=== PATIENT | male | born 1955 | race African-American/Black ===

== ENCOUNTER 2017-07-26 09:14 | Inpatient (IN) | payer OTHER ==
[2017-07-26 09:48] LABS: Hematocrit 31.1 % (42.0-52.0); Mean Platelet Volume 8.4 fL (7.4-10.4); Red Blood Cell (RBC) Count 4.25 mill/uL (4.70-6.10); White Blood Cell (WBC) Count 4.8 thou/uL (4.8-10.8)
[2017-07-26 09:51] LABS: #Eosinphils 0.1 thou/uL (0.0-0.7); #Lymphocytes 1.1 thou/uL (1.20-3.40); #Monocytes 0.5 thou/uL (0.11-0.59); #Neutrophils 3.1 thou/uL (1.40-6.50); %Basophils 0.9 % (0.0-1.0); %Eosinophils 1.9 % (0.0-10.0); %Lymphocytes 22.8 % (21.0-51.0); %Monocytes 10.1 % (0.0-10.0)
[2017-07-26 10:04] LABS: ALT (SGPT) 20 U/L (8-55); AST (SGOT) 26 U/L (5-34); Alkaline Phosphatase 79 U/L (40-150); Anion Gap 16 mmol/L (10-20); BUN (Urea Nitrogen) 28 mg/dL (8.4-25.7); Bilirubin, Total 0.3 mg/dL (0.2-1.2); CK (CPK) 118 U/L (30-200); Calc. Creatinine Clearance 0 mL/min (70-130); Calcium 9.2 mg/dL (7.8-10.44); Carbon Dioxide 22 mmol/L (23-31); Chloride 105 mmol/L (98-107); Estimated GFR-MDRD 30; Globulin 3.7 g/dL (2.4-3.5); Lipase 21 U/L (8-78); Protein, Total 7.3 g/dL (5.8-8.1)
[2017-07-26 10:17] LABS: Troponin I 0.109 ng/mL (< 0.028)
--- NOTE | 2017-07-26 10:23 | RAD ---
PORTABLE CHEST: History: Cough, chest pain. Comparison: 07-30-15 FINDINGS: Cardiomegaly. Vascular markings upper normal but stable. No evidence of focal infiltrate or effusion . IMPRESSION: No acute abnormality identified. POS: [facility]
[2017-07-26 10:31] LABS: Hypochromia SLIGHT = 6-15 cells (100X) (0-5/hpf); Microcytosis SLIGHT = 6-15 cells (100X) (0-5/hpf); Polychromasia SLIGHT = 2-3 cells (100X) (0-2/hpf)
[2017-07-26 16:11] LABS: Troponin I 0.084 ng/mL (< 0.028)
[2017-07-26] MEDS ORDERED: PROVENTIL INHALER 6.7 G (200 INHALATIONS) INH PRN (18:31)
[2017-07-26] MEDS: Atorvastatin Calcium 20 MG TAB PO SCH (20:38)
[2017-07-26] MEDS: Carvedilol 3.125 MG TAB PO SCH (20:38)
[2017-07-26] MEDS: Tamsulosin HCl 0.4 MG CAP PO SCH (20:39)
[2017-07-26] MEDS: Spironolactone 25 MG TAB PO SCH (20:39)
[2017-07-26 21:34] LABS: Amphetamine Not Detected (NotDetected); Methadone Not Detected (NotDetected); Methamphetamine Not Detected (NotDetected)
[2017-07-27 04:49] LABS: #Basophils 0.1 thou/uL (0.0-0.2); #Eosinphils 0.1 thou/uL (0.0-0.7); #Lymphocytes 1.5 thou/uL (1.20-3.40); #Monocytes 0.5 thou/uL (0.11-0.59); #Neutrophils 2.9 thou/uL (1.40-6.50); %Basophils 1.6 % (0.0-1.0); %Eosinophils 2.2 % (0.0-10.0); %Lymphocytes 29.7 % (21.0-51.0); %Monocytes 9.9 % (0.0-10.0); Mean Platelet Volume 8.6 fL (7.4-10.4); Red Blood Cell (RBC) Count 4.49 mill/uL (4.70-6.10); White Blood Cell (WBC) Count 5.1 thou/uL (4.8-10.8)
[2017-07-27 04:55] LABS: PTT 36.2 SEC (22.9-36.1); Prothrombin Time 14.2 SEC (12.0-14.7)
--- NOTE | 2017-07-27 06:17 | HP ---
DATE OF ADMISSION: 07/26/2017 REASON FOR CHIEF COMPLAINT: Shortness of breath and chest pain. HISTORY OF PRESENT ILLNESS: Mr. Ac is a 61-year-old male with past medical hist ory of severe cardiomyopathy, hypertension, coronary artery disease, and drug abuse as well as nonco mpliant, who came because of shortness of breath and chest pain. The patient also says he is coughi ng up blood since 3-4 days, the chest pain also started 3 days ago. The pain is sharp in nature, no t associated with diaphoresis. It does not radiate. It is in the retrosternal area. He says the s ymptoms are getting worse, getting more short of breath and chest pain. He received 2 DuoNeb treatm ents on the way to the hospital by the EMS. He felt better in the ER. The patient states he has no t been taking medications every day; he uses cocaine. When he smokes, he smokes cocaine. In the ER , the patient was evaluated and found to have indeterminate cardiac enzymes. He is admitted to rule out myocardial infarction and further evaluation. PAST MEDICAL HISTORY: 1. Severe cardiomyopathy with systolic heart failure with ejection fraction of 5% to 10%, echocardi ogram done in 2013. 2. Hypertension, uncontrolled. 3. Chronic kidney disease, stage 3. 4. Bipolar disorder with chronic cocaine abuse. 5. Diverticulosis. 6. Coronary artery disease. PAST SURGICAL HISTORY: 1. Status post appendectomy. 2. Status post coronary angiogram. CURRENT MEDICATIONS: The patient is supposed to be taking albuterol inhaler p.r.n., aspirin 81 mg d aily, Lipitor 20 mg at bedtime, Coreg 3.125 b.i.d., Lasix 40 b.i.d., hydralazine 50 t.i.d., Imdur 60 daily, lisinopril 10 mg daily, KCl 20 mEq daily, spironolactone 25 b.i.d., and Flomax 0.4 mg daily. ALLERGIES: No known drug allergies. FAMILY HISTORY: Nothing of interest. SOCIAL HISTORY: The patient lives alone. No history of alcohol intake. He uses crack regular. He states he does not smoke cigarettes. REVIEW OF SYSTEMS: Chest pain, shortness of breath, otherwise unremarkable. PHYSICAL EXAMINATION: GENERAL: The patient is alert, awake, and oriented x3. VITAL SIGNS: Temperature 98, pulse 74, respirations 20, and blood pressure 130/90. HEENT: Head is normocephalic, atraumatic. Pupils are equal and reactive to light. Nasopharynx is pale and dry. NECK: Supple. No JVD. LUNGS: Bilateral air entry present, no rales, no rhonchi. CARDIAC: S1, S2 regular. ABDOMEN: Soft, no distention, no tenderness. Normal bowel sounds present. RECTAL: Deferred. CENTRAL NERVOUS SYSTEM: No focal deficits. LABORATORY AND X-RAY FINDINGS: CBC shows WBC 4.8, hemoglobin 9.6, hematocrit 31, and platelets 216, MCV 73. Metabolic panel shows sodium 139, potassium 4.8, chloride 105, CO2 of 20, urea nitrogen 28 , creatinine 2.6, and glucose 110. CK-MB 2.6, troponin I 0.109. Chest x-ray negative. EKG shows n ormal sinus rhythm, no acute ST-T wave changes seen. ASSESSMENT: 1. Chest pain and shortness of breath, rule out myocardial infarction. 2. Severe cardiomyopathy with systolic heart failure with ejection fraction of 10% to 15%. 3. Cocaine abuse. 4. Hypertension. 5. The patient is noncompliant with medications. 6. Chronic kidney disease, stage 3. 7. Chronic anemia. PLAN: 1. Vital signs q.4 hours. 2. Activity as tolerated. 3. Allergies: NKDA. 4. Hep-Lock. 5. Diet: Cardiac. 6. CK-MB and troponin I q.8 hours x2. 7. Cardiolite stress test in the morning. 8. Continue home medications. 9. Urine drug screen.
[2017-07-27] MEDS: Aspirin 81 mg Enteric Coated Tablet PO SCH ×2 (10:31→12:24)
[2017-07-27] MEDS: Furosemide 40 MG TAB PO SCH ×3 (10:32→12:51)
[2017-07-27] MEDS: Lisinopril 10 MG TAB PO SCH ×2 (10:32→12:24)
[2017-07-27] MEDS: Potassium Chloride 20 MEQ TAB PO SCH ×2 (10:32→12:24)
[2017-07-27] MEDS: Carvedilol 3.125 MG TAB PO SCH ×3 (10:32→20:06)
[2017-07-27] MEDS: Spironolactone 25 MG TAB PO SCH ×3 (10:33→20:07)
--- NOTE | 2017-07-27 16:57 | CON ---
DATE OF CONSULTATION: 07/27/2017 HISTORY OF PRESENT ILLNESS: Patient is a 61-year-old gentleman, who presents with increasing chest discomfort. The patient has a long history of coronary artery disease. In, October of 2014 he underwent a cardiac catheterization. He was found to have a severe decrease in left ventricular systolic function with estimated ejection of 5-10%. He had a 70% lesion in the first diagonal branch. The left circumflex artery had a 70% OM lesion in both the first and second obtuse marginal branches. The right coronary had a 70% stenosis and was a small nondominant vessel. The patient had a severe cardiomyopathy. He was placed on medical therapy. He has not come for followup. He states he discontinued the use of alcohol and tobacco. He continues to use cocaine. The patient reports that recently he has noticed increasing dyspnea and chest discomfort with exertion. He reports this occurs with less exertion. He denies having any chest discomfort at rest. The patient states he has been compliant with his medications. PAST MEDICAL HISTORY: 1. Cardiomyopathy. 2. Hypertension. 3. Chronic renal failure. 4. Bipolar disorder. 5. Diverticulosis. 6. Cocaine abuse. PAST SURGICAL HISTORY: Appendectomy. SOCIAL HISTORY: The patient uses cocaine. ALLERGIES: None. REVIEW OF SYSTEMS: Noticeable for difficulty with urination, ten-point system is otherwise unremarkable. PHYSICAL EXAMINATION: GENERAL: Thin gentleman in no acute distress. Blood pressure 132/38. NECK: No jugular venous distention. LUNGS: Clear to auscultation. HEART: Regular rate and rhythm, normal S1, S2. ABDOMEN: Nondistended. EXTREMITIES: No edema. SKIN: Warm and dry. NEUROLOGIC: Nonfocal. VASCULAR: Radial pulses 2+. LABORATORY DATA: Sodium is 139, potassium 4.2, chloride 105, bicarbonate 22, BUN 28, creatinine is 2.6. Troponin 0.09. White blood cell count is 5.1, hemoglobin 10.6, hematocrit 33.0 and his platelets were 301. His EKG revealed him to have normal sinus rhythm with a T-wave abnormality suggestive of ischemia. IMPRESSION: 1. Exertional angina. 2. History of severe cardiomyopathy. 3. Severe diffuse coronary artery disease. 4. History of malignant hypertension. 5. Chronic renal failure. 6. Bipolar disorder. 7. Cocaine abuse. This gentleman presents with exertional angina. From a cardiac standpoint, it is imperative he be more compliant with his medications and followup. If he continues to have chest discomfort, we will continue to increase the dose of his Imdur. I will recheck the patient's echocardiogram to reevaluate his left ventricular function. We will follow this patient with you through his hospitalization. ESTELA
[2017-07-27] MEDS: Tamsulosin HCl 0.4 MG CAP PO SCH (20:06)
[2017-07-27] MEDS: Atorvastatin Calcium 20 MG TAB PO SCH (20:07)
[2017-07-28] MEDS: Carvedilol 6.25 MG TAB PO SCH ×2 (08:56→20:51)
[2017-07-28] MEDS: Aspirin 81 mg Enteric Coated Tablet PO SCH (08:56)
[2017-07-28] MEDS: Furosemide 40 MG TAB PO SCH ×2 (08:56→15:45)
[2017-07-28] MEDS: Spironolactone 25 MG TAB PO SCH ×2 (08:57→20:50)
[2017-07-28] MEDS: Lisinopril 10 MG TAB PO SCH (08:57)
[2017-07-28] MEDS: Potassium Chloride 20 MEQ TAB PO SCH (08:57)
--- NOTE | 2017-07-28 15:12 | CON ---
DATE OF CONSULTATION: 07/28/2017 REFERRING PHYSICIAN: Dr. Sunny Downing I am seeing Mr. Ac at our [facility] telemetry floor as an electrophysiology corporate travel consultant. His problems are: 1. Chronic systolic congestive heart failure with likely nonischemic cardiomyopathy. A. Left heart catheterization in 10/2014 did reveal left ventricular ejection fraction 5-10% and 70% first diagonal stenosis, 70% circumflex stenosis, 70% RCA stenosis which was nondominant. On medic al therapy. B. Followup echocardiogram today reveals an LVEF of 5-10, moderate left atrial dilation, mild enlarg ed right atrial size with mitral regurgitation, mild tricuspid regurgitation. Left ventricular size severely enlarged. 2. Chronic kidney disease stage 3. 3. History of bipolar disorder with a history of cocaine use in the past. Patient counseled to tello mccarthy. 4. Coronary artery receptors. 5. Hypertension. ALLERGIES: None noted. MEDICATIONS AT HOME: Albuterol, aspirin, Lipitor, Coreg, Lasix, hydralazine, Imdur, lisinopril, pot assium, spironolactone, Flomax. SUBJECTIVE: Mr. Ac was admitted with progressive dyspnea and coughing. He also had some sharp d iscomfort in the retrosternal area without radiation. He had a DuoNeb treatment, which has improved his dyspnea. He mentioned that he has used cocaine in the recent past, but planning to quit at thi s point. He denies IV drug use. He does not smoke tobacco, denies drug abuse, or other drug abuse. He was ruled out for myocardial infarction, although had borderline troponin changes. Also consul mckenzie for ICD implant. PAST MEDICAL HISTORY: As above. He also has history of diverticulosis, status post appendectomy. SOCIAL HISTORY: Patient denies tobacco or ETOH abuse. Denies IV drug use, but does admit to smokin g crack cocaine in the recent past and indeed his cocaine screen was positive. FAMILY HISTORY: Noncontributory. OBJECTIVE: VITAL SIGNS: Blood pressure 105/74, heart rate 75, temperature 97.6 degrees Fahrenheit, respiration s 18. GENERAL: He is alert and oriented man in no apparent distress. NECK: Supple. Jugular veins are not distended. CHEST: Coarse without crackles. CARDIOVASCULAR: Heart sounds are regular rate and rhythm. No gallop is appreciated, 1/6 holosystol ic murmur is heard. PMI is laterally displaced. ABDOMEN: Benign. Bowel sounds positive. EXTREMITIES: Lower extremities without edema, clubbing or cyanosis. Pulses are adequate. NEUROLOGIC: Patient is nonfocal. MUSCULOSKELETAL: No joint swelling or deformities. SKIN: Without rash. DATABASE: The EKG reviewed reveals sinus rhythm, 77 beats per minute. No seen. QTC is stron g at 484. LABORATORY DATA: Sodium 139, potassium 4.2, BUN 20, creatinine is 2.6, troponin 0.09. White count 5.5, hemoglobin 10.6, platelet count is 301. Chest x-ray from 07/26/2017 shows no acute abnormality, no effusion or infiltrate. His INR is 1.1. AST and ALT are 26 and 20. ASSESSMENT AND PLAN: Mr. Ac is a pleasant 61-year-old man who does have history of coronary moises ry disease, but his cardiomyopathy seems to be in excess of his coronary artery disease detected in the past. He is felt to have a nonischemic cardiomyopathy component. He has a history of chronic c ocaine abuse, but he has a commitment to quit. His left systolic function is severely reduced. He is reasonably young. I think he is at high risk for cardiac arrhythmias in the future. I did discuss the pros and cons of an ICD implant. He understands the benefit of the sudden cardiac prophylaxis. On the other hand, I also detailed the issues with potential continued cocaine use, which could be p roarrhythmic encountering intuitive to defibrillator prophylaxis sudden cardiac . He understan ds and he has a strong commitment to quit. Risks and benefits of procedure were detailed including a malignant arrhythmia induction, infection, bleeding, pneumothorax, tamponade, lead dislodgement, a nd appropriate shocks. Device records also detailed. He understands and is willing to proceed. We will schedule him in near date. Thank you for the consult.
[2017-07-28] MEDS: Atorvastatin Calcium 20 MG TAB PO SCH (20:50)
[2017-07-28] MEDS: Tamsulosin HCl 0.4 MG CAP PO SCH (20:51)
[2017-07-29] MEDS: Carvedilol 6.25 MG TAB PO SCH ×2 (06:00→20:41)
[2017-07-29 06:39] LABS: PTT 35.9 SEC (22.9-36.1); Prothrombin Time 13.9 SEC (12.0-14.7)
[2017-07-29 06:51] LABS: Anion Gap 15 mmol/L (10-20); BUN (Urea Nitrogen) 46 mg/dL (8.4-25.7); Calc. Creatinine Clearance 20 mL/min (70-130); Calcium 9.3 mg/dL (7.8-10.44); Carbon Dioxide 28 mmol/L (23-31); Chloride 100 mmol/L (98-107); Estimated GFR-MDRD 24
[2017-07-29 07:20] LABS: #Basophils 0.1 thou/uL (0.0-0.2); #Eosinphils 0.1 thou/uL (0.0-0.7); #Lymphocytes 1.1 thou/uL (1.20-3.40); #Monocytes 0.6 thou/uL (0.11-0.59); #Neutrophils 2.5 thou/uL (1.40-6.50); %Basophils 1.2 % (0.0-1.0); %Eosinophils 3.1 % (0.0-10.0); %Lymphocytes 25.5 % (21.0-51.0); %Monocytes 13.4 % (0.0-10.0); Hematocrit 34.7 % (42.0-52.0); Mean Platelet Volume 8.2 fL (7.4-10.4); Red Blood Cell (RBC) Count 4.69 mill/uL (4.70-6.10); White Blood Cell (WBC) Count 4.4 thou/uL (4.8-10.8)
[2017-07-29 08:31] LABS: Hypochromia SLIGHT = 6-15 cells (100X) (0-5/hpf); Microcytosis MODERATE=15-30 cells (100X) (0-5/hpf); Ovalocytes SLIGHT = 2-5 cells (100X) (0-1/hpf); Polychromasia SLIGHT = 2-3 cells (100X) (0-2/hpf)
[2017-07-29] MEDS: Aspirin 81 mg Enteric Coated Tablet PO SCH (09:23)
[2017-07-29] MEDS: Lisinopril 10 MG TAB PO SCH (09:23)
[2017-07-29] MEDS: Furosemide 40 MG TAB PO SCH (09:24)
[2017-07-29] MEDS: Potassium Chloride 20 MEQ TAB PO SCH (09:25)
[2017-07-29] MEDS: Spironolactone 25 MG TAB PO SCH (09:25)
[2017-07-29] MEDS ORDERED: Midazolam HCl 5 mg/5 ml Vial ONE (12:06)
[2017-07-29] MEDS ORDERED: Morphine Sulfate 2 MG/ML SYRINGE SLOW IVP PRN (13:24)
[2017-07-29] MEDS ORDERED: Promethazine HCl 25 MG/ML VIAL SLOW IVP PRN (13:24)
[2017-07-29] MEDS ORDERED: Ondansetron HCl/PF 4 MG/2 ML Vial IVP PRN ×2 (13:24→14:36)
[2017-07-29] MEDS ORDERED: Meperidine HCl/PF 25 MG/ML VIAL SLOW IVP PRN (13:24)
[2017-07-29] MEDS ORDERED: Acetaminophen/Codeine 30-300mg Tablet PO PRN ×2 (14:33)
[2017-07-29] MEDS ORDERED: HYDROcodone/Acetaminophen 5/325 mg Tablet PO PRN ×2 (14:34)
[2017-07-29] MEDS ORDERED: Bisacodyl 5 MG TAB PO PRN (14:36)
[2017-07-29] MEDS ORDERED: Bisacodyl 10 MG SUPP PR PRN (14:36)
[2017-07-29] MEDS ORDERED: Mag-Al 1200 mg/1200 mg/30 ML UDCUP PO PRN (14:36)
[2017-07-29] MEDS ORDERED: Silver Sulfadiazine 1% Cream 50 GM JAR TOP PRN (14:36)
[2017-07-29] MEDS ORDERED: Acetaminophen 325 MG TAB PO PRN (14:36)
[2017-07-29] MEDS ORDERED: Nitroglycerin 0.4 MG TAB (25 Tab Bottle) SL PRN (14:36)
[2017-07-29] MEDS ORDERED: diphenhydrAMINE HCl 25 MG CAP PO PRN (14:36)
[2017-07-29] MEDS ORDERED: Temazepam 15 MG CAP PO PRN (14:36)
[2017-07-29] MEDS: traMADol HCl 50 MG TAB PO PRN (14:59)
[2017-07-29] MEDS ORDERED: Spironolactone 25 MG TAB PO SCH (17:00)
[2017-07-29] MEDS: Cephalexin 250 MG CAP PO SCH ×2 (17:52→20:41)
[2017-07-29] MEDS: Atorvastatin Calcium 20 MG TAB PO SCH (20:41)
[2017-07-29] MEDS: Tamsulosin HCl 0.4 MG CAP PO SCH (20:42)
[2017-07-30 05:51] LABS: Anion Gap 17 mmol/L (10-20); BUN (Urea Nitrogen) 49 mg/dL (8.4-25.7); Calc. Creatinine Clearance 21 mL/min (70-130); Calcium 9.4 mg/dL (7.8-10.44); Carbon Dioxide 22 mmol/L (23-31); Chloride 100 mmol/L (98-107); Estimated GFR-MDRD 26
[2017-07-30] MEDS ORDERED: Spironolactone 25 MG TAB PO SCH (08:00)
[2017-07-30] MEDS ORDERED: Furosemide 40 MG TAB PO SCH (09:00)
[2017-07-30] MEDS ORDERED: Lisinopril 10 MG TAB PO SCH (09:00)
[2017-07-30] MEDS ORDERED: Potassium Chloride 20 MEQ TAB PO SCH (09:00)
--- NOTE | 2017-07-30 11:41 | RAD ---
AP VIEW CHEST: 07/30/2017 HISTORY: Status post pacemaker insertion. COMPARISON: 07/26/2017 FINDINGS: AP view chest demonstrates placement of an intracardiac defibrillator. EKG leads are seen over the chest. Cardiomegaly is noted. Mild to moderate pulmonary vascular congestion is seen. No evidence of left-sided pneumothorax is seen. IMPRESSION: Interval placement of intracardiac defibrillator. POS: [facility]
[2017-07-30] MEDS: Aspirin 81 mg Enteric Coated Tablet PO SCH (12:55)
[2017-07-30] MEDS: Cephalexin 250 MG CAP PO SCH ×4 (12:55→20:49)
[2017-07-30] MEDS: Carvedilol 6.25 MG TAB PO SCH ×2 (12:56→20:49)
[2017-07-30] MEDS: Spironolactone 25 MG TAB PO SCH (12:56)
--- NOTE | 2017-07-30 16:56 | EKG ---
Test Reason : Blood Pressure : / mmHG Vent. Rate : 077 BPM Atrial Rate : 077 BPM P-R Int : 172 ms QRS Dur : 096 ms QT Int : 428 ms P-R-T Axes : -21 -32 168 degrees QTc Int : 484 ms Normal sinus rhythm Left axis deviation Left ventricular hypertrophy with repolarization abnormality Prolonged QT Abnormal ECG Confirmed by KORI HAWLEY, LETTY Strong ([id number]), deputy editor in chief THADDEUS STAFFORD ([id number]) on 07/30/2017 4:56:20 PM Referred By: Confirmed By:LETTY SHEIKH MD
[2017-07-30] MEDS: Atorvastatin Calcium 20 MG TAB PO SCH (20:49)
[2017-07-30] MEDS: Tamsulosin HCl 0.4 MG CAP PO SCH (20:49)
[2017-07-31 05:04] LABS: Anion Gap 15 mmol/L (10-20); BUN (Urea Nitrogen) 44 mg/dL (8.4-25.7); Calc. Creatinine Clearance 25 mL/min (70-130); Calcium 9.3 mg/dL (7.8-10.44); Carbon Dioxide 23 mmol/L (23-31); Chloride 104 mmol/L (98-107); Estimated GFR-MDRD 30
[2017-07-31 05:43] VITALS: BMI 22.7
[2017-07-31] MEDS: Aspirin 81 mg Enteric Coated Tablet PO SCH (10:25)
[2017-07-31] MEDS: Spironolactone 25 MG TAB PO SCH (10:25)
[2017-07-31] MEDS: Carvedilol 6.25 MG TAB PO SCH ×2 (10:26→21:21)
[2017-07-31] MEDS: Cephalexin 250 MG CAP PO SCH ×4 (10:26→21:22)
[2017-07-31] MEDS: Atorvastatin Calcium 20 MG TAB PO SCH (21:21)
[2017-07-31] MEDS: Tamsulosin HCl 0.4 MG CAP PO SCH (21:22)
[2017-08-01] MEDS: traMADol HCl 50 MG TAB PO PRN (00:08)
[2017-08-01 06:01] LABS: Anion Gap 14 mmol/L (10-20); BUN (Urea Nitrogen) 44 mg/dL (8.4-25.7); Calc. Creatinine Clearance 26 mL/min (70-130); Calcium 9.5 mg/dL (7.8-10.44); Carbon Dioxide 21 mmol/L (23-31); Chloride 105 mmol/L (98-107); Estimated GFR-MDRD 31
[2017-08-01] MEDS: Cephalexin 250 MG CAP PO SCH ×3 (08:19→15:54)
[2017-08-01] MEDS: Carvedilol 6.25 MG TAB PO SCH (08:19)
[2017-08-01] MEDS: Spironolactone 25 MG TAB PO SCH (08:19)
[2017-08-01] MEDS: Aspirin 81 mg Enteric Coated Tablet PO SCH (08:19)
[2017-08-01] MEDS ORDERED: Carvedilol 6.25 MG TAB PO SCH (09:00)
--- NOTE | 2017-08-01 11:35 | PRG ---
DATE OF SERVICE: 07/30/2017 Follow up note on ICD interrogation report. SUBJECTIVE: Mr. Ac remains stable 1 day after his ICD implant. OBJECTIVE: VITAL SIGNS: Blood pressure is 130/65, heart rate 70, respiration 16, temperature 98.4 degrees Fahr enheit. Chest x-ray this morning reveals mild to moderate pulmonary vascular congestion, but no evidence of pneumothorax is seen. ICD in place. Interrogation of his defibrillator reveals a Medtronic Visa AF VR single chamber pacemaker defibrill ator, battery voltage is end of life. Lead parameters are impedance 61 ohms. RV is 12.3 millivolts , capture threshold 0.5 volts at 0.4 milliseconds, no arrhythmias noted since implant. CONCLUSION: Stable, patient one day post-ICD implant with adequate ICD parameters noted. PLAN: Continue antibiotics for a week. Discharge home as per primary service and routine follow up for wound check in 10-14 days in our office.
[2017-08-01 15:56] VITALS: BP 143/74
[2017-08-01 16:02] VITALS: TEMP 98.6
--- NOTE | 2017-08-04 01:52 | DIS ---
DATE OF ADMISSION: 07/26/2017 DATE OF DISCHARGE: 08/01/2017 ADMITTING DIAGNOSES: 1. Chest pain and shortness of breath, rule out myocardial infarction. 2. Severe cardiomyopathy with systolic heart failure with ejection fraction of 10% to 15%. 3. Cocaine abuse. 4. Hypertension. 5. Patient is noncompliant with medications. 6. Chronic kidney disease, stage 3. 7. Chronic anemia. FINAL DIAGNOSES: 1. Severe cardiomyopathy status post ICD placement. 2. Severe decrease in left ventricular function with ejection fraction of 5% to 10%, echo done on 0 07/27/2017. 3. Diffuse coronary artery disease. 4. Noncompliant with medications. 5. Cocaine abuse. 6. Hypertension. 7. Acute kidney injury, improving. 8. Chronic kidney disease, stage 3. BRIEF SUMMARY OF HOSPITAL COURSE: Mr. Hermelindo Ac is a 61-year-old -[place] male admitted because of chest pain and shortness of breath. The patient was noncompliant with medication and ab using cocaine. The patient does serial cardiac enzymes and they are in indeterminant range. A card iology consult was done. The patient was seen by Dr. Downing. He felt the patient has diffuse cor onary artery disease with angina and severe cardiomyopathy status post anechocardiogram, which showe d severe decrease in left ventricular function with ejection fraction of 5% to 10%. In the past, th e patient did not agree for any ICD placement; at this time, he agreed. So, a consultation was done with referral specialist. The patient was seen by Dr. Carmona. He felt the patient has severe cardiomyopat hy requiring ICD placement. The patient underwent procedure. Postoperatively, the patient tolerate d the procedure very well, but he did have worsening of renal function with acute kidney injury. Hi s BUN went up to 46 from 28. His creatinine went up from 2.6 to 3.1. His Lasix and lisinopril was stopped and spironolactone dose was reduced after his creatinine improved to 2.5. The patient had b een feeling well, no problem, no chest pain, no shortness of breath. In view of improvement, the tiffanie gallegos was discharged home. At the time of discharge, he was stable. His vital signs were stable. Lungs were clear. Heart sounds regular. Abdomen is soft and nontender. Bowel sounds present. DISCHARGE MEDICATIONS: Include Flomax 0.4 mg daily, atorvastatin 30 mg daily, Imdur 60 mg daily, hy dralazine 50 t.i.d., aspirin 81 mg daily, albuterol inhaler two puffs q.i.d., spironolactone 25 mg, Coreg 12.5 b.i.d., Keflex 500 q.6 hours for 7 days. The patient will come for followup in 2 weeks.
== END 2017-08-01 17:30 | disposition home or self-care (01) | DRG 227 ==
LOC: ERS 09:14 → 2SW 10:40 → OBSVTOIN 10:40 → 2NO 07-28 17:27
PROVIDERS: ADMIT Internal Medicine; ATTEND Internal Medicine
PROC: 0JH608Z Insertion of Defibrillator Generator into Chest Subcutaneous Tissue and Fascia, Open Approach (ICD-10-PCS; 2017-07-29)
PROC: 02HK3KZ Insertion of Defibrillator Lead into Right Ventricle, Percutaneous Approach (ICD-10-PCS; 2017-07-29)
PROC: 4B02XTZ Measurement of Cardiac Defibrillator, External Approach (ICD-10-PCS; 2017-07-29)
PROC: 3E0102A Introduction of Anti-Infective Envelope into Subcutaneous Tissue, Open Approach (ICD-10-PCS; 2017-07-29)
PROC: 4B02XTZ Measurement of Cardiac Defibrillator, External Approach (ICD-10-PCS; principal; 2017-07-30)
DX: I13.0 Hypertensive heart and chronic kidney disease with heart failure and stage 1 through stage 4 chronic kidney disease, or unspecified chronic kidney disease (principal); I42.9 Cardiomyopathy, unspecified; N17.9 Acute kidney failure, unspecified; N18.3 Chronic kidney disease, stage 3 (moderate); I08.1 Rheumatic disorders of both mitral and tricuspid valves; I50.22 Chronic systolic (congestive) heart failure; F20.0 Paranoid schizophrenia; F14.10 Cocaine abuse, uncomplicated; Z91.14 Patient's other noncompliance with medication regimen; F31.9 Bipolar disorder, unspecified; K57.90 Diverticulosis of intestine, part unspecified, without perforation or abscess without bleeding; D63.1 Anemia in chronic kidney disease; I25.119 Atherosclerotic heart disease of native coronary artery with unspecified angina pectoris; Z87.891 Personal history of nicotine dependence
CPT/HCPCS: 33249; 36415; 71010; 80048; 80053; 80306; 82550; 82553; 83690; 84484; 85025; 85610; 85730; 90471; 90732; 93005; 93010; 93306; 93642; 93798; 94760; A4216; G0009; J2250; J3490

== ENCOUNTER 2017-11-03 15:11 | Emergency (ER) | payer OTHER ==
[2017-11-03 17:15] LABS: #Eosinphils 0.1 thou/uL (0.0-0.7); #Lymphocytes 1.3 thou/uL (1.20-3.40); #Monocytes 0.6 thou/uL (0.11-0.59); #Neutrophils 5.2 thou/uL (1.40-6.50); %Basophils 0.5 % (0.0-1.0); %Eosinophils 1.8 % (0.0-10.0); %Lymphocytes 17.4 % (21.0-51.0); %Neutrophils 72.4 % (42.0-75.0); Hemoglobin 10.9 g/dL (14.0-18.0); Mean Corpuscular HGB CONC 29.3 g/dL (32.0-36.0); Mean Corpuscular Hemoglobin 20.7 pg (27.0-31.0); Mean Corpuscular Volume 70.7 fl (80.0-94.0); Mean Platelet Volume 9.8 fL (7.4-10.4); Platelet Count 340 thou/uL (130-400); RBC Distribution Width 17.4 % (11.5-14.5); Red Blood Cell (RBC) Count 5.24 mill/uL (4.70-6.10); White Blood Cell (WBC) Count 7.2 thou/uL (4.8-10.8)
[2017-11-03] MEDS ORDERED: cefTRIAXone\\ROCEPHIN 2 GM in Sodium Chloride 0.9% 100 ML IVPB ONE (17:15)
--- NOTE | 2017-11-03 17:22 | RAD ---
PORTABLE CHEST ONE VIEW: 11/03/17 at 4:24 p.m. HISTORY: Cough, fever, chills, bodyaches. FINDINGS: Comparison made with exam of 07/30/17. Left sided pacemaker device remains in place. The heart size is stable. There is a consolidative beyer ge in the right lower lobe. No pneumothorax or large effusions are seen. IMPRESSION: Right lower lobe pneumonia. POS: [facility]
[2017-11-03 17:28] LABS: Hypochromia MODERATE=16-30 cells (100X) (0-5/hpf); MDiff Complete? YES; Microcytosis MODERATE=15-30 cells (100X) (0-5/hpf); Polychromasia MODERATE = 3-4 cells (100X) (0-2/hpf); Reflex for Review?? NO
[2017-11-03 17:34] LABS: ALT (SGPT) Less than 7 U/L (8-55); AST (SGOT) 15 U/L (5-34); Albumin 3.7 g/dL (3.4-4.8); Alkaline Phosphatase 91 U/L (40-150); Anion Gap 15 mmol/L (10-20); BUN (Urea Nitrogen) 25 mg/dL (8.4-25.7); Bilirubin, Total 0.4 mg/dL (0.2-1.2); CK (CPK) 45 U/L (30-200); Calc. Creatinine Clearance 0 mL/min (70-130); Calcium 9.7 mg/dL (7.8-10.44); Carbon Dioxide 22 mmol/L (23-31); Chloride 104 mmol/L (98-107); Estimated GFR-MDRD 47; Glucose 113 mg/dL (80-115); Potassium 4.2 mmol/L (3.5-5.1); Protein, Total 8.7 g/dL (5.8-8.1); Sodium 137 mmol/L (136-145)
[2017-11-03 17:39] LABS: CKMB 0.9 ng/mL (0-6.6); Troponin I 0.061 ng/mL (< 0.028)
--- NOTE | 2017-11-05 12:54 | EKG ---
Test Reason : Blood Pressure : / mmHG Vent. Rate : 078 BPM Atrial Rate : 138 BPM P-R Int : 176 ms QRS Dur : 098 ms QT Int : 408 ms P-R-T Axes : -19 -28 149 degrees QTc Int : 465 ms Left ventricular hypertrophy with repolarization abnormality Abnormal ECG Confirmed by GUNJAN BROOKS ([id number]), senior editor THADDEUS STAFFORD ([id number]) on 11/05/2017 12:53:46 PM Referred By: Confirmed By:GUNJAN BROOKS
== END 2017-11-03 18:19 | disposition home or self-care (01) ==
LOC: ERS 15:11
DX: J18.9 Pneumonia, unspecified organism (principal); E11.9 Type 2 diabetes mellitus without complications; I11.0 Hypertensive heart disease with heart failure; I50.9 Heart failure, unspecified; F20.0 Paranoid schizophrenia; I25.2 Old myocardial infarction; F31.9 Bipolar disorder, unspecified; Z87.891 Personal history of nicotine dependence; Z79.82 Long term (current) use of aspirin; Z79.899 Other long term (current) drug therapy
CPT/HCPCS: 36415; 71010; 80053; 82550; 82553; 83605; 84484; 85025; 87040; 87804; 93005; 96365; 99406; J0696; J7050

== ENCOUNTER 2017-11-14 11:01 | Inpatient (IN) | payer OTHER ==
[2017-11-14 12:06] LABS: #Lymphocytes 1.6 thou/uL (1.20-3.40); #Monocytes 0.5 thou/uL (0.11-0.59); #Neutrophils 7.1 thou/uL (1.40-6.50); %Eosinophils 0.4 % (0.0-10.0); %Lymphocytes 17.5 % (21.0-51.0); %Monocytes 5.7 % (0.0-10.0); %Neutrophils 76.3 % (42.0-75.0); Hemoglobin 9.3 g/dL (14.0-18.0); Mean Corpuscular HGB CONC 28.9 g/dL (32.0-36.0); Mean Corpuscular Hemoglobin 20.7 pg (27.0-31.0); Mean Corpuscular Volume 71.5 fl (80.0-94.0); Mean Platelet Volume 8.7 fL (7.4-10.4); Platelet Count 385 thou/uL (130-400); RBC Distribution Width 17.8 % (11.5-14.5); Red Blood Cell (RBC) Count 4.51 mill/uL (4.70-6.10); White Blood Cell (WBC) Count 9.4 thou/uL (4.8-10.8)
--- NOTE | 2017-11-14 12:14 | RAD ---
CHEST 1 VIEW: HISTORY: Shortness of breath. COMPARISON: Chest 1 view 11/03/17. FINDINGS: Similar appearance of the right middle lobe airspace consolidation. Mild pulmonary venous congestion . Heart size is enlarged. No pneumothorax. Single-lead defibrillator is present. IMPRESSION: 1. Right middle lobe opacification not improved. 2. Cardiomegaly. 3. Mild pulmonary venous congestion. Continued followup is recommended. If there is no improvement within the next few weeks, a CT will b e recommended to evaluate for underlying mass. POS: [facility]
[2017-11-14 12:28] LABS: ALT (SGPT) Less than 7 U/L (8-55); AST (SGOT) 13 U/L (5-34); Albumin 3.3 g/dL (3.4-4.8); Alkaline Phosphatase 91 U/L (40-150); Anion Gap 15 mmol/L (10-20); BUN (Urea Nitrogen) 23 mg/dL (8.4-25.7); Bilirubin, Total 0.5 mg/dL (0.2-1.2); CKMB 1.1 ng/mL (0-6.6); Calc. Creatinine Clearance 0 mL/min (70-130); Calcium 9.1 mg/dL (7.8-10.44); Carbon Dioxide 24 mmol/L (23-31); Chloride 105 mmol/L (98-107); Estimated GFR-MDRD 51; Globulin 4.6 g/dL (2.4-3.5); Glucose 98 mg/dL (80-115); Potassium 4.4 mmol/L (3.5-5.1); Protein, Total 7.9 g/dL (5.8-8.1); Sodium 140 mmol/L (136-145); Troponin I 0.076 ng/mL (< 0.028)
[2017-11-14 12:35] LABS: Bite Cells SLIGHT = 2-5 cells (100X) (0-1/hpf); Hypochromia MARKED = >30 cells (100X) (0-5/hpf); MDiff Complete? YES; Microcytosis MODERATE=15-30 cells (100X) (0-5/hpf); PLT Morphology Comment Appears Adequate; Polychromasia MODERATE = 3-4 cells (100X) (0-2/hpf)
[2017-11-14] MEDS ORDERED: Nitroglycerin 2% Ointment 1 INCH/1 GM Packet ONE (13:31)
[2017-11-14] MEDS ORDERED: hydrALAZINE 20 MG/ML VIAL ONE (14:19)
[2017-11-14] MEDS ORDERED: hydrALAZINE 20 MG/ML VIAL SLOW IVP PRN (19:41)
[2017-11-14] MEDS ORDERED: Furosemide 40 MG/4 ML VIAL SLOW IVP SCH (19:45)
[2017-11-14 20:12] LABS: Troponin I 0.069 ng/mL (< 0.028)
[2017-11-14] MEDS: hydrALAZINE 25 MG TAB PO SCH (20:39)
[2017-11-14] MEDS: Carvedilol 3.125 MG TAB PO SCH (20:39)
--- NOTE | 2017-11-14 23:15 | HP ---
DATE OF ADMISSION: 11/14/2017 CHIEF COMPLAINT: Shortness of breath and cough. HISTORY OF PRESENT ILLNESS: Mr. Ac is a 62-year-old -[place] male with past medical histo ry of severe cardiomyopathy with decreased LV function with ejection fraction of 15%, [facility] and cough for a few days. The patient states he ran out of medications last week and he did not go for refills to the physician's office. He also has a cough, is productive wi th yellow sputum. No fever, no chest pain. Shortness of breath has been progressively getting worse to the point he could not breathe. The patient decided to come to the hospital. In the ER, the pat iesarthak was evaluated and found to be in acute CHF exacerbation. The patient also had elevated blood pr essures of 160/90. The patient received hydralazine, Lasix, and nitroglycerin as of. The patient w as admitted for further evaluation and management. PAST MEDICAL HISTORY: 1. Cocaine abuse. 2. Severe cardiomyopathy with decreased LV estimated ejection fraction of 10%. 3. Hypertension. 4. Noncompliance with medications. 5. History of respiratory failure. 6. Chronic kidney disease stage 3. 7. Bipolar disorder. 8. History of diverticulosis. 9. Diffuse coronary artery disease. 10. The patient was treated for pneumonia about 2 weeks ago. PAST SURGICAL HISTORY: 1. Status post appendectomy. 2. Status post coronary angiogram. CURRENT MEDICATIONS: The patient is supposed to be on Lasix 40 b.i.d., Coreg 3.125 b.i.d., Lipitor 2 0 mg daily, aspirin 81 mg daily, hydralazine 50 t.i.d., Imdur 60 daily, lisinopril 10 mg daily, KCl 2 0 mEq daily, spironolactone 25 b.i.d., Flomax 0.4 mg daily, also albuterol inhaler p.r.n. The patien t is out of all of these medications for a few days. ALLERGIES: No known drug allergies. FAMILY HISTORY: Nothing contributory. SOCIAL HISTORY: The patient lives alone. History of cocaine abuse. REVIEW OF SYSTEMS: Cardiovascular: Has shortness of breath. No chest pain. Respiratory: Has coug h and fever. Gastrointestinal: No nausea or vomiting. No abdominal pain. PHYSICAL EXAMINATION: GENERAL: The patient is alert, awake, oriented x3. VITAL SIGNS: Pulse 104, respirations 26, blood pressure 160/90. HEENT: Head is normocephalic, atraumatic. Pupils are equal and reactive to light. Nasopharynx is p tristan and dry. Hard and soft palate, no lesions seen. SKIN: Skin turgor decreased. NECK: No JVD. Carotid pulses are bilateral. LUNGS: Breath sounds diminished bilaterally. Crackles present in both bases. HEART: S1, S2 regular. ABDOMEN: Soft, no distention, no tenderness. Normal bowel sounds. RECTAL: Deferred. CRANIAL NERVE SYSTEM: No focal deficit. LABORATORY AND X-RAY FINDINGS: CBC shows a WBC of 9.4, hemoglobin 9.3, hematocrit 32, platelets 385. Metabolic panel: Sodium 140, potassium 4.4, chloride 105, CO2 of 24, urea nitrogen 23, creatinine 1.6, glucose 98. CK-MB 1.1, troponin 0.076. BNP was 7596. Chest x-ray shows pulmonary vascular con gestion as well as opacity in the right lower lobe. EKG shows a normal sinus rhythm, no acute ST or T wave changes seen. ASSESSMENT: 1. Congestive heart failure, acute exacerbation. 2. Severe cardiomyopathy with decreased left ventricular function with ejection fraction of 10-15%. 3. Hypertension, uncontrolled. 4. Noncompliant with the medications. 5. Right lower lobe opacity. 6. Chronic kidney disease stage 3. 7. Chronic anemia. 8. Diffuse coronary artery disease. 9. History of cocaine abuse. PLAN: 1. Vital signs q.4 hours. 2. Activity: As tolerated. 3. Allergies: NKDA. 4. Hep-Lock. 5. Lasix 40 IVP q.12 h. 6. Continue home medications. 7. Hydralazine 10 mg IVP q.6 hours p.r.n. 8. Troponin I q.[address] of the chest. 10. Levaquin 750 daily.
[2017-11-15 00:14] VITALS: BMI 24.6
[2017-11-15 05:40] LABS: #Lymphocytes 0.8 thou/uL (1.20-3.40); #Monocytes 0.4 thou/uL (0.11-0.59); #Neutrophils 7.5 thou/uL (1.40-6.50); %Basophils 0.2 % (0.0-1.0); %Eosinophils 0.1 % (0.0-10.0); %Lymphocytes 8.6 % (21.0-51.0); %Monocytes 4.8 % (0.0-10.0); %Neutrophils 86.3 % (42.0-75.0); Hemoglobin 8.7 g/dL (14.0-18.0); Mean Corpuscular HGB CONC 28.3 g/dL (32.0-36.0); Mean Corpuscular Volume 70.7 fl (80.0-94.0); Mean Platelet Volume 8.9 fL (7.4-10.4); Platelet Count 385 thou/uL (130-400); RBC Distribution Width 17.8 % (11.5-14.5); Red Blood Cell (RBC) Count 4.33 mill/uL (4.70-6.10); White Blood Cell (WBC) Count 8.7 thou/uL (4.8-10.8)
[2017-11-15 05:59] LABS: Anion Gap 14 mmol/L (10-20); BUN (Urea Nitrogen) 36 mg/dL (8.4-25.7); Calc. Creatinine Clearance 41 mL/min (70-130); Calcium 8.9 mg/dL (7.8-10.44); Carbon Dioxide 22 mmol/L (23-31); Chloride 104 mmol/L (98-107); Estimated GFR-MDRD 49; Glucose 108 mg/dL (80-115); Potassium 4.7 mmol/L (3.5-5.1); Sodium 135 mmol/L (136-145)
[2017-11-15 06:05] LABS: Amphetamine Not Detected (NotDetected); Barbiturates Screen Not Detected (NotDetected); Benzodiazepine Screen Not Detected (NotDetected); Cocaine Metabolite Screen Detected (NotDetected); Medtox Control Line Valid? VALID (VALID); Medtox Reader # READER 1; Methadone Not Detected (NotDetected); Methamphetamine Not Detected (NotDetected); Opiate Screen Not Detected (NotDetected); Oxycodone Screen Not Detected (NotDetected); Phencyclidine (PCP) Not Detected (NotDetected); THC/Cannabinoid Screen Not Detected (NotDetected); Tricyclic Screen Not Detected (NotDetected)
[2017-11-15] MEDS: Furosemide 40 MG/4 ML VIAL SLOW IVP SCH ×2 (06:20→14:51)
[2017-11-15] MEDS: Potassium Chloride 20 MEQ TAB PO SCH (08:33)
[2017-11-15] MEDS: hydrALAZINE 25 MG TAB PO SCH ×3 (08:33→20:42)
[2017-11-15] MEDS: Spironolactone 25 MG TAB PO SCH (08:33)
[2017-11-15] MEDS: Lisinopril 10 MG TAB PO SCH (08:34)
[2017-11-15] MEDS: Carvedilol 3.125 MG TAB PO SCH ×2 (08:34→20:42)
--- NOTE | 2017-11-15 09:27 | CT ---
CT CHEST WITH IV CONTRAST: History: Chest pain. Dyspnea. FINDINGS: No comparison. Large mass at the medial aspect of the right lung base is surrounded by adjacent atele ctasis. It measures up to 6.9 cm length x 9.0 cm depth x 6.6 cm width and compresses the right lower lobe bronchus. At the posterior aspect of the superior segment left lower lobe is a subpleural 0.7 cm nodule. Parenchymal scarring is also present at each lung base. There is calcification in the arteri al structures. No bulky adenopathy is evident. The inferior most images show marked dilatation of each renal collecting system. IMPRESSION: 1. Large right lower lobe mass. Compression of the right lower lobe bronchus. Please consider pulmona ry medicine evaluation for potential bronchoscopy. Percutaneous biopsy could be performed if needed. 2. Small left lower lobe nodule, 0.7 cm. Possible metastatic disease. 3. Severe bilateral hydronephrosis, partially visualized. CT abdomen and pelvis could be performed fo r complete evaluation. POS: [facility]
[2017-11-15] MEDS ORDERED: Guaifenesin DM 100-10/5 ML UDCUP PO PRN (21:49)
--- NOTE | 2017-11-16 01:53 | CON ---
DATE OF CONSULTATION: 11/15/2017 HISTORY OF PRESENT ILLNESS: Mr. Ac is a pleasant 62-year-old male. He lives up in [place]. Unfortunately, he continues to use cocaine on today's drug screen as well as multiple drug screens in the past. He has also been noncompliant with maintaining his medications for his cardiomyopathy. He was admitt ed with an abnormal chest radiograph with a diagnosis of heart failure. I reviewed all of his availa ble radiographs dating back as long as he has been coming here. Unfortunately, Mr. Ac developed an abnormal radiograph last fall. He had a right hilar mass. Thi s right hilar mass has progressed to a point where it was obstructing his right lower lobe bronchus b y radiograph. I have reviewed this CT. Atelectasis is large. It is unclear how much of this is a m ass and how much of this is atelectasis, but I suspect a lot of it is mass. He has a 7 mm nodule in his left lower lobe as well. More importantly, he has severe hydronephrosis bilaterally. This is a more pressing issue in my opinion. He has no complaints at the time of my consultation. Specifically, denies orthopnea, paroxysmal nocturnal dyspnea or hemoptysis. He denies shortness of b reath with exertion currently. PAST MEDICAL HISTORY: 1. Remarkable for a severe cardiomyopathy. He has been followed by Dr. Downing in the past. It is unclear whether or not Dr. Downing knows he is in the hospital. He says he has an appointment comi ng up with him. 2. History of hypertension. 3. History of chronic kidney disease. 4. History of bipolar illness. 5. History of diverticulosis. 6. History of diffuse coronary artery disease. 7. History of an appendectomy. 8. History of coronary angiogram. Admitting history says he was treated for pneumonia 2 weeks ago, I suppose the pneumonia was this mas s. MEDICATIONS: He is on no medicines on admission. ALLERGIES: He has no drug allergies. FAMILY HISTORY: Negative for lung disease in an early age. SOCIAL HISTORY: He has been a smoker. He continues to use cocaine. He lives alone in [place]. He says he wants to live down here and he is looking up moving into the [employer] and then spe nding time with his daughter. REVIEW OF SYSTEMS: Otherwise, 10-point negative. PHYSICAL EXAMINATION: GENERAL: He is in no distress. VITAL SIGNS: He is afebrile, heart rate 93, blood pressure 164/105, and respiratory rate 18. HEENT: Pupils are equal. NECK: Supple. No lymphadenopathy. LUNGS: Remarkable for decreased breath sounds at his right base. He is not wheezing. HEART: Regular rhythm, no S3. ABDOMEN: Soft and nontender. EXTREMITIES: With asymmetry. LABORATORY DATA: White count 8.7, hemoglobin 8.7, platelets 385. Sodium 135, potassium 4.7, chlorid e 104, bicarbonate 22, BUN 36, creatinine 1.7. There is no new blood gas on him. IMPRESSION: Lung mass, likely malignant. PLAN: Schedule outpatient PET imaging. I will try to make an appointment through my office tomorrow for PET imaging for him. It will be his duty to show up for the PET and then follow up with me maulik harris. I am not sure he will be a candidate for any type of treatment given the severity of his car diomyopathy, his history of medical noncompliance and his ongoing cocaine use, but we will try. This is a 70-minute consultation of which 50% of the consult was spent reviewing radiographs and on t he unit with staff coordinating care, and discussing the case with the attending physician.
[2017-11-16] MEDS: Furosemide 40 MG/4 ML VIAL SLOW IVP SCH ×2 (06:21→14:22)
[2017-11-16] MEDS: Potassium Chloride 20 MEQ TAB PO SCH (09:24)
[2017-11-16] MEDS: Spironolactone 25 MG TAB PO SCH (09:24)
[2017-11-16] MEDS: Carvedilol 3.125 MG TAB PO SCH ×2 (09:25→20:03)
[2017-11-16] MEDS: hydrALAZINE 25 MG TAB PO SCH ×3 (09:25→20:03)
[2017-11-16] MEDS: Lisinopril 10 MG TAB PO SCH (09:25)
--- NOTE | 2017-11-16 11:04 | CT ---
ABDOMEN AND PELVIS CT WITH CONTRAST: Date: 11/16/17 Reference is made to chest CT from preceding day and is compared to a prior abdomen and pelvis CT fro January 2014. FINDINGS: There is marked distention of the urinary bladder with moderate to severe bilateral hydronephrosis wi th associated right renal atrophy and slight volume loss of left kidney. Delayed phase imaging also p erformed. This reveals an abnormal location of each ureter which may relate to partial cystectomy and transposition of the ureters. Therefore, the bilateral hydroureteronephrosis likely relates to chron ic reflux. Redemonstration of pulmonary mass at right lung base as was depicted on recent chest CT, o nly partially visualized on the basis of this exam. There is a large right inguinal hernia containing nonobstructed bowel, a majority of which is contrast opacified small bowel. There is prostate calcif ication. Granulomatous calcification is present within the liver. Imaged osseous structures are nonac arthur in appearance. IMPRESSION: 1. Findings consistent with moderate to severe hydroureteronephrosis bilaterally, likely on the basi s of chronic reflux as discussed above. Correlate with surgical history. 2. Large right inguinal hernia with large hernia sac within the right aspect of the scrotum containi ng multiple loops of contrast opacified small bowel. No associated mechanical obstruction is evident. 3. Partially imaged pulmonary mass. Reference CT of thorax from previous day for details. POS: SALVADOR
[2017-11-16 18:34] LABS: Bacteria/HPF None Seen HPF (None Seen); RBC/HPF 0-3 HPF (0-3); Squamous Epithelial 0-3 HPF (0-3)
[2017-11-16 18:35] LABS: Pathc Cast-AUWi Flag 2.71 (0-2.49)
[2017-11-16 18:42] LABS: Hyaline Casts/LPF 0-3 HYALINE CAST LPF (0-3 Hyaline); Other Casts/LPF None Seen LPF (0-3 Hyaline)
[2017-11-16 18:46] LABS: Amphetamine Not Detected (NotDetected); Barbiturates Screen Not Detected (NotDetected); Benzodiazepine Screen Not Detected (NotDetected); Cocaine Metabolite Screen Detected (NotDetected); Medtox Control Line Valid? VALID (VALID); Medtox Reader # READER 1; Methadone Not Detected (NotDetected); Methamphetamine Not Detected (NotDetected); Opiate Screen Not Detected (NotDetected); Oxycodone Screen Not Detected (NotDetected); Phencyclidine (PCP) Not Detected (NotDetected); THC/Cannabinoid Screen Not Detected (NotDetected); Tricyclic Screen Not Detected (NotDetected)
--- NOTE | 2017-11-16 20:07 | PRG ---
DATE OF SERVICE: 11/16/2017 SUBJECTIVE: Hermelindo Ac is medically stable. He is afebrile. Heart rate is in the 70s, blood pre ssure 153/98. I explained to him that there is really no need for him to be in the hospital since hi s radiographic abnormalities were all secondary to this mass in his chest. An incidental finding was hydronephrosis which was worked up today with an abdomen and pelvis CT. I suggested Urology consultation yesterday when I met with Dr. Bateman. I have explained to him t hat it will be his responsibility to contact my office for a followup and scheduling of PET imaging. He is unclear where he will be residing or how and if he can get to PET imaging, so there is no reas on for me to schedule this at this point in time. Once he is settled after discharge, he can contact me. I will be happy to see him and arrange PET imaging through the office.
[2017-11-17 07:46] VITALS: TEMP 98.1
[2017-11-17] MEDS: Carvedilol 3.125 MG TAB PO SCH (07:59)
[2017-11-17] MEDS: hydrALAZINE 25 MG TAB PO SCH (07:59)
[2017-11-17 08:00] VITALS: BP 124/79
[2017-11-17] MEDS: Lisinopril 10 MG TAB PO SCH (08:00)
[2017-11-17] MEDS: Spironolactone 25 MG TAB PO SCH (08:00)
[2017-11-17] MEDS: Potassium Chloride 20 MEQ TAB PO SCH (08:00)
[2017-11-17] MEDS ORDERED: Furosemide 40 MG TAB PO SCH (09:00)
--- NOTE | 2017-11-17 09:02 | CON ---
DATE OF CONSULTATION: 11/16/2017 REASON FOR CONSULTATION: Consultation was requested for bilateral hydronephrosis. HISTORY OF PRESENT ILLNESS: Patient is a 62-year-old noncompliant male, who was admitted with congestive heart failure exacerbation with possible component of pneumonia, who had a chest CT that found a lung mass, which is yet to be fully worked up, but concerning for malignancy. In the workup for the lung mass , the superior portion of the abdomen was imaged and noted bilateral hydro and I was consulted. The patient reports frequency every 2-3 hours and every hour with diuresis medications and nocturia x4 to 5. He admits to hesitancy, weak stream, and incomplete emptying. He denies any burning, UTIs, gross hematuria, kidney stones, STDs or stricture disease. He was already to be taking tamsulosin for his presumed BPH. After seeing the patient, I discovered that he was set up with my partners previously. One, he no-showed for a new appt. The second, he was seen in the hospital and instructed to f/u. He did not, and it was recorded that he was hostile to and did not wish to see that doctor. He was advised to f/u with urology. This was in 2014. PAST MEDICAL HISTORY: Significant for CAD and an OR in 2012. He has cardiomyopathy with an EF of 10%-15%. He has hypertension; high cholesterol; renal insufficiency; bipolar disorder, for which he is disabled; anemia; and cocaine abuse, which is ongoing per testing, but the patient reports he stopped since September. PAST SURGICAL HISTORY: Appendectomy and pacer; hence the appendectomy was remote and the pacer was placed in 07/2017. MEDICATIONS: Lasix 40 b.i.d., Coreg 3.125 b.i.d., Lipitor 20 mg, lisinopril 10 mg, aspirin 81 mg, hydralazine 50 t.i.d., Imdur 60 mg, spironolactone 25 mg b.i.d., albuterol inhaler, potassium, and Flomax. ALLERGIES: None. SOCIAL HISTORY: He has never used IV drug. He has a [id number] history, but quit in 2011 or 2012 when the heart attack occurred. He has also quit drinking since then as well. He reports his last cocaine use was in September. He lives on his own and does not work due to his bipolar disability. FAMILY HISTORY: Mother is alive and with some general health issues at 84. His father in his 80s, he is not sure of what. There was no cancer in the family. He has 3 sisters that are living and a brother that from heart attack. REVIEW OF SYSTEMS: He has no chest pain. He had shortness of breath with cough and fever upon admission and this has improved. He had been diagnosed with pneumonia 2 weeks prior to this admission. He had diarrhea from the contrast for the CT, but otherwise his bowels have been normal. He has never had a colonoscopy. He is not aware of any PSAs or prostate cancer screening. His large right inguinal hernia PHYSICAL EXAMINATION: VITAL SIGNS: Stable, temperature of 97.8, heart rate 78, blood pressure 124/79 , satting 96% on room air. GENERAL: He is comfortable, cooperative, appropriate, and oriented. HEART: Regular rate with a systolic ejection murmur noted. LUNGS: Relatively clear to auscultation. ABDOMEN: Soft, nondistended, nontender. No CVA tenderness. EXTREMITIES: He had no significant lower extremity edema. GENITOURINARY: Testes are descended bilaterally without masses. Initially, you could only examine the left given his large right IH, but he was able to reduce this fully himself. Phallus was circumcised without lesions. No meatal stenosis. Digital rectal exam revealed an enlarged prostate that was smooth without nodules or sidewall induration. LABORATORY DATA: Reveal an anemia of 8.7 and 30.6. A BUN and creatinine of 36 and 1.71, which is up from 1.65, which I suspect is from the contrast of the CT ; however, looking back at his creatinines they have been as high as 3.17 in July and have not been in the 1 range since 2013. Urinalysis from 07/2015 showed inflammation only without a culture. I do not see any PSAs. CT scan with contrast from 11/16/2017, which I reviewed personally, revealed bilateral hydro with decreased parenchyma bilaterally, right greater than left, with hydroureter to the distended bladder, which is up to the umbilicus, and the prostate appeared normal without obvious prostatic nodule that was clearly evident and the CT scan from 01/14/2014, which I also reviewed, which was concern for a bladder mass, but to me this is consistent with prostatic nodule sticking up into the bladder base and the bladder was clearly uniformly thickened at that time and distended above the pelvic brim then, but without any hydronephrosis and normal parenchyma at that time. ASSESSMENT AND PLAN: We have a complicated 62-year-old male, who has a fairly common result of chronic bladder outlet obstruction from benign prostatic hypertrophy resulting in bilateral hydronephrosis secondary to the very distended bladder. However, in most cases, the pt presents with renal failure, which he did not; in fact, his creatinine is doing better than prior. In most cases I would place a catheter until the creatinine nadirs, which probably already is and then attempt voiding trials thereafter. However, the patient is clearly voiding--just not emptying adequately with a decent Creatinine. Since they were looking to actually discharge him today, in combination with his comorbidities and social situation, I do not feel Otto catheter would be appropriate at this time for the patient's overall wellbeing. I reviewed this in great detail with him. I would increase the tamsulosin to twice a day and add finasteride. I will check a urinalysis, both for infection and cytology given his smoking history (and prior concern for bladder mass--again likely his prostate). I would order a PSA and expect that it would be higher than normal, but rule out that it is concerning for any sort of metastatic prostate cancer. I'd have him follow up as an outpatient and monitor his emptying. We then reviewed how he really would benefit from a prostate procedure, but he likely would not tolerate this. He really would like to have his hernia fixed. If he ever does follow up, and is cleared from a cardiac standpoint, these procedures could be done together. That's also assuming his lung mass doesn't trump everything else. I reviewed all of this with him and his nurse and I wrote prescriptions for tamsulosin and finasteride. I will follow up on his urinalysis and PSA, but otherwise, from my standpoint, he would be safe to be discharged based on all of his extenuating circumstances. ESTELA
--- NOTE | 2017-11-17 13:52 | PQF ---
DATE: 11-17-17 ATTN: XI DAVIES Please exercise your independent, professional judgment in responding to the clarification form. Clinical indicators are provided on the bottom of this form for your review Please check appropriate box(s): HEART FAILURE: A.TYPE: [ ] Systolic / HFrEF [ ] Diastolic / HFpEF [ y ] Combined Systolic / Diastolic B.ACUITY [ ] Acute[ y ] Acute on Chronic [ ] Chronic C.WITH (if appropriate) [ ] Hypertensive Heart Disease[ ] Hypertensive Heart and Kidney Disease [ ] Other diagnosis [ ] Unable to determine In addition, please specify: Present on Admission (POA): [ ] Yes [ ] No [ ] Unable to determine For continuity of documentation, please document condition throughout progress notes and discharge summary. Thank You. CLINICAL INDICATORS - SIGNS / SYMPTOMS / LABS ER DOCUMENTATION: SOB, HX OF DM, CHF, MD, HTN, PACEMAKER ER DIAGNOSIS: CHF EXACERBATION, SOB H&P: CHF, ACUTE EXACERBATION, CKD 3, HTN UNCONTROLLED, DIFFUSE CAD BNP 11-14-2017 : 7596.4 CXR 11-14-17: RML OPACIFICATION NOT IMPROVED, CARDIOMEGALY, MILD PULMONARY VENOUS CONGESTION RISKS: H&P: CHF, ACUTE EXACERBATION, CKD 3, HTN UNCONTROLLED, DIFFUSE CAD TREATMENTS: (11-17-17) LASIX, (11-14-17) COREG, (11-15-17) LISINOPRIL (This form is maintained as a part of the permanent medical record) 2014 [employer] All Rights Reserved [email or web address] Office: [phone] ESTELA
--- NOTE | 2017-11-17 17:05 | PRG ---
DATE OF SERVICE: 11/17/2017 Hermelindo Ac is clinically unchanged. Urology adjusted Mr. Ac's prostate medication. He has no new complaints. No new exam findings. He has been reminded again that is imperative that he follow up for evaluation in the office and PET scheduling once he establishes a residence in the area if [place] is what he intends to do. He has my phone number.
--- NOTE | 2017-11-18 14:20 | DIS ---
DATE OF ADMISSION: 11/14/2017 DATE OF DISCHARGE: 11/17/2017 ADMITTING DIAGNOSES: 1. Congestive heart failure with acute exacerbation. 2. Severe cardiomyopathy with LV dysfunction with ejection fraction of 10%-15%. 2. Hypertension, uncontrolled. 3. Noncompliance with medications. 4. Right lower lobe mass. 5. Chronic kidney disease stage 3. 6. Chronic anemia. 7. Cocaine abuse. 8. Diffuse coronary artery disease. FINAL DIAGNOSES: 1. Congestive heart failure with acute exacerbation, improved. 2. Severe cardiomyopathy. 3. Right lung mass, possible malignancy. 4. Hypertension, uncontrolled, improved. 5. Chronic kidney disease stage 3. 6. Noncompliance with medications. 7. Cocaine abuse. 8. Diffuse coronary artery disease. BRIEF SUMMARY OF HOSPITAL COURSE: Mr. Ac is a 62-year-old -[place] male admitted because of shortness of breath and cough. The patient was in CHF exacerbation. Patient responded to his med ications with IV Lasix. The patient has been out of medications for a few days. The patient's short ness of breath improved. His cough has improved. The patient was found to have right lung mass. A chest CT was done and has revealed a large right lower lobe mass with compression of the right lower lobe bronchus, also showed bilateral hydronephrosis. A CT of the abdomen and pelvis was done, which showed moderate to severe hydroureteronephrosis bilaterally based on chronic reflux problems. A pulm onary consult was done. The patient was seen by Dr. Scherer. His impression was the patient has right lung mass, possibly malignant. He suggested a PET scan as an outpatient. He felt he may not be a c andidate for any kind of aggressive therapy in view of his cardiomyopathy and noncompliant and cocain e abuse. The patient was also seen by urologist in view of his hydronephrosis. He felt the patient has chronic bladder outlet obstruction due to prostate hypertrophy with bilateral hydronephrosis. He suggested conservative management and start him on Flomax, so the patient improved and he is b eing discharged home. At the time of discharge, he was stable, his vital signs were stable. Lungs w ere clear. Heart sounds regular. Abdomen is soft, nontender, bowel sounds present. DISCHARGE MEDICATIONS: Include Flomax 0.4 mg daily, Lipitor 20 mg daily, hydralazine 50 t.i.d., aspi rin 81 mg daily, ProAir inhaler two puffs q.i.d. p.r.n., spironolactone 25 mg daily, KCl 20 mEq daily , Robitussin p.r.n., furosemide 40 mg b.i.d., lisinopril 10 mg daily, Imdur 30 mg daily, Coreg 3.125 b.i.d., finasteride 5 mg daily. FOLLOWUP: The patient will come for followup in 2 weeks.
== END 2017-11-17 12:49 | disposition home or self-care (01) | DRG 291 ==
LOC: ERS 11:01 → ERHOLD 14:19 → T4-A 18:06
PROVIDERS: ADMIT Internal Medicine; ATTEND Internal Medicine
DX: I13.0 Hypertensive heart and chronic kidney disease with heart failure and stage 1 through stage 4 chronic kidney disease, or unspecified chronic kidney disease (principal); I50.43 Acute on chronic combined systolic (congestive) and diastolic (congestive) heart failure; I42.9 Cardiomyopathy, unspecified; N18.3 Chronic kidney disease, stage 3 (moderate); N13.30 Unspecified hydronephrosis; N13.8 Other obstructive and reflux uropathy; F31.9 Bipolar disorder, unspecified; I25.10 Atherosclerotic heart disease of native coronary artery without angina pectoris; Z91.14 Patient's other noncompliance with medication regimen; D64.9 Anemia, unspecified; Z87.01 Personal history of pneumonia (recurrent); R91.8 Other nonspecific abnormal finding of lung field; F14.10 Cocaine abuse, uncomplicated; N40.1 Benign prostatic hyperplasia with lower urinary tract symptoms; I25.2 Old myocardial infarction; Z87.891 Personal history of nicotine dependence
CPT/HCPCS: 36415; 71045; 71260; 74177; 80048; 80053; 80306; 81015; 82553; 83880; 84153; 84484; 85025; 87086; 93005; 93798; 96374; A4216; J0360; J1940; J1956

== ENCOUNTER 2017-11-25 09:55 | Inpatient (IN) | payer OTHER ==
[2017-11-25] MEDS ORDERED: Furosemide 40 MG/4 ML VIAL ONE (10:15)
--- NOTE | 2017-11-25 10:57 | RAD ---
TWO VIEWS CHEST: Comparison: Chest two views 11-14-17. Chest CT 11-15-17. History: Bilateral lower extremity swelling and dyspnea. FINDINGS: Two views of the chest shows an enlarged cardiomediastinal silhouette. The pacemaker is unchanged in position. Opacity is again seen in the right lower lobe, unchanged. No pleural effusion is seen. IMPRESSION: Stable right lower lobe opacity. This could represent an infiltrate or a mass. POS: IRWIN
--- NOTE | 2017-11-25 11:02 | CT ---
HEAD CT NONCONTRAST: CLINICAL HISTORY: Weakness. FINDINGS: Moderate-sized region of vasogenic edema involves the left frontal lobe and the anterior aspect of th e left parietal lobe. There is a smaller region of vasogenic edema centered at the mid right centrum semiovale. Indeterminate hypoattenuation is seen within the right cerebellar hemisphere. AT the hi gh posterior right parietal region approximating the vertex, there is a subtle white matter hypodensi ty. There is no acute intracranial hemorrhage, ventriculomegaly, or midline shift. Calvarium is intact. Incidental note of vascular calcification. 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 The patient has indwelling p acemaker. Followup with contrast-enhanced CT is warranted for more definitive assessment. POS: SALVADOR
[2017-11-25 11:10] LABS: CKMB 0.4 ng/mL (0-6.6); Troponin I 0.128 ng/mL (< 0.028)
[2017-11-25 11:12] LABS: Anion Gap 18 mmol/L (10-20); BUN (Urea Nitrogen) 47 mg/dL (8.4-25.7); Calc. Creatinine Clearance 0 mL/min (70-130); Calcium 8.2 mg/dL (7.8-10.44); Carbon Dioxide 23 mmol/L (23-31); Chloride 98 mmol/L (98-107); Estimated GFR-MDRD 36; Glucose 78 mg/dL (80-115); Potassium 4.4 mmol/L (3.5-5.1); Sodium 135 mmol/L (136-145)
[2017-11-25 13:37] LABS: Troponin I 0.109 ng/mL (< 0.028)
[2017-11-25] MEDS ORDERED: Acetaminophen 325 MG TAB PO PRN (14:02)
[2017-11-25] MEDS ORDERED: PROVENTIL INHALER 6.7 G (200 INHALATIONS) INH PRN (19:08)
[2017-11-25] MEDS ORDERED: Potassium Chloride 10 MEQ TAB PO SCH (19:15)
[2017-11-25] MEDS ORDERED: Furosemide 40 MG/4 ML VIAL SLOW IVP SCH (19:15)
[2017-11-25] MEDS ORDERED: Aspirin 81 mg Enteric Coated Tablet PO SCH (19:15)
[2017-11-25] MEDS: Tamsulosin HCl 0.4 MG CAP PO SCH (20:29)
[2017-11-25] MEDS: hydrALAZINE 25 MG TAB PO SCH (20:29)
[2017-11-25] MEDS: Carvedilol 25 MG TAB PO SCH (20:30)
[2017-11-25] MEDS: Atorvastatin Calcium 20 MG TAB PO SCH (20:32)
[2017-11-25] MEDS: Finasteride 5 MG TAB PO SCH (20:32)
[2017-11-25] MEDS ORDERED: FLU VACC QS2017-18 36 mo. & older 0.5 ML SYRINGE IM ONE (21:00)
[2017-11-25 21:15] VITALS: BMI 24.6
[2017-11-26] MEDS: Acetaminophen 325 MG TAB PO PRN ×2 (05:49→23:31)
[2017-11-26 05:58] LABS: #Lymphocytes 0.7 thou/uL (1.20-3.40); #Neutrophils 6.1 thou/uL (1.40-6.50); %Basophils 0.5 % (0.0-1.0); %Eosinophils 0.4 % (0.0-10.0); %Neutrophils 77.1 % (42.0-75.0); Hemoglobin 7.4 g/dL (14.0-18.0); Mean Corpuscular HGB CONC 29.8 g/dL (32.0-36.0); Mean Corpuscular Hemoglobin 20.6 pg (27.0-31.0); Mean Corpuscular Volume 69.2 fl (80.0-94.0); Mean Platelet Volume 9.3 fL (7.4-10.4); Platelet Count 312 thou/uL (130-400); RBC Distribution Width 17.6 % (11.5-14.5); White Blood Cell (WBC) Count 7.9 thou/uL (4.8-10.8)
[2017-11-26] MEDS: Diabetic Tussin 200 MG/10 ML UDCUP PO PRN ×2 (07:16→13:14)
[2017-11-26] MEDS ORDERED: Furosemide 40 MG/4 ML VIAL SLOW IVP SCH ×2 (09:00→15:45)
[2017-11-26] MEDS ORDERED: Sodium Chloride 0.9% 10 ML ONE (09:33)
[2017-11-26] MEDS: Carvedilol 25 MG TAB PO SCH ×2 (10:15→21:24)
[2017-11-26] MEDS: Potassium Chloride 10 MEQ TAB PO SCH (10:17)
[2017-11-26] MEDS: Lisinopril 10 MG TAB PO SCH (10:18)
[2017-11-26] MEDS: Spironolactone 25 MG TAB PO SCH (10:18)
[2017-11-26] MEDS: Aspirin 81 mg Enteric Coated Tablet PO SCH (10:19)
[2017-11-26] MEDS: hydrALAZINE 25 MG TAB PO SCH ×3 (10:19→21:24)
[2017-11-26] MEDS: Cefepime 1 GM, Admixture Fee 1 EACH in Sterile Water 10 ML SLOW IVP SCH (17:50)
[2017-11-26 17:52] LABS: Amphetamine Not Detected (NotDetected); Cocaine Metabolite Screen Not Detected (NotDetected); Medtox Reader # READER 4; Methamphetamine Not Detected (NotDetected); Phencyclidine (PCP) Not Detected (NotDetected); THC/Cannabinoid Screen Not Detected (NotDetected)
[2017-11-26 17:53] LABS: Barbiturates Screen Not Detected (NotDetected); Benzodiazepine Screen Not Detected (NotDetected); Medtox Control Line Valid? VALID (VALID); Methadone Not Detected (NotDetected); Opiate Screen Detected (NotDetected); Oxycodone Screen Not Detected (NotDetected); Tricyclic Screen Not Detected (NotDetected)
[2017-11-26] MEDS ORDERED: Oseltamivir 75 MG CAP PO SCH (20:15)
[2017-11-26] MEDS: Atorvastatin Calcium 20 MG TAB PO SCH (21:23)
[2017-11-26] MEDS: Tamsulosin HCl 0.4 MG CAP PO SCH (21:23)
[2017-11-26] MEDS: Finasteride 5 MG TAB PO SCH (21:24)
[2017-11-27] MEDS: Cefepime 1 GM, Admixture Fee 1 EACH in Sterile Water 10 ML SLOW IVP SCH ×3 (00:59→17:14)
[2017-11-27] MEDS: Furosemide 40 MG/4 ML VIAL SLOW IVP SCH ×2 (05:26→14:26)
[2017-11-27 05:34] LABS: Anion Gap 14 mmol/L (10-20); BUN (Urea Nitrogen) 64 mg/dL (8.4-25.7); Calc. Creatinine Clearance 26 mL/min (70-130); Calcium 8.2 mg/dL (7.8-10.44); Carbon Dioxide 27 mmol/L (23-31); Chloride 95 mmol/L (98-107); Estimated GFR-MDRD 31; Glucose 101 mg/dL (80-115); Sodium 132 mmol/L (136-145)
[2017-11-27 06:02] LABS: Band 2 % (5-11); Eosinophils 1 % (0-10); Hemoglobin 7.6 g/dL (14.0-18.0); Lymphocytes 12 % (21-51); MDiff Complete? YES; Mean Corpuscular HGB CONC 29.4 g/dL (32.0-36.0); Mean Corpuscular Hemoglobin 20.3 pg (27.0-31.0); Mean Platelet Volume 9.4 fL (7.4-10.4); Microcytosis SLIGHT = 6-15 cells (100X) (0-5/hpf); Monocytes 19 % (0-10); Neutrophil 66 % (42-75); Platelet Count 298 thou/uL (130-400); RBC Distribution Width 17.6 % (11.5-14.5); Red Blood Cell (RBC) Count 3.76 mill/uL (4.70-6.10); White Blood Cell (WBC) Count 4.5 thou/uL (4.8-10.8)
--- NOTE | 2017-11-27 06:50 | HP ---
DATE OF ADMISSION: 11/25/2017 CHIEF COMPLAINT: Leg edema, not feeling well and shortness of breath on exertion. HISTORY OF PRESENT ILLNESS: Mr. Ac is a 62-year-old -[place] male with past medical histo ry of severe cardiomyopathy, recently discharged from the hospital after being treated for CHF and ne w right lung mass, which is possibly malignant, came because of the worsening of the leg swelling and shortness of breath. He did not have any chest pain. No nausea or vomiting. No headache, no dizzi ness. The patient states he has been taking his medication until today and leg swelling did not reso lve in spite of taking Lasix. So, the patient came to the hospital. In the ER, the patient was eval uated and found to have marked leg edema as well as acute CHF due to systolic heart failure and it is still dull. Chest x-ray still showed right lower lobe opacity, possibly malignant and also showed m ets to the brain. The patient received IV Lasix and admitted for further evaluation and management. PAST MEDICAL HISTORY: 1. Severe cardiomyopathy with marked decreased LV function with ejection fraction of 10% to 15%. 2. Hypertension. 3. History of cocaine abuse. 4. Chronic kidney disease, stage 3. 5. Noncompliant with medications. 6. Bipolar disorder. 7. History of diverticulosis. 8. History of diffuse coronary artery disease. 9. History of respiratory failure. 10. History of right lung mass, possibly malignant. PAST SURGICAL HISTORY: Status post appendectomy, status post coronary angiogram. CURRENT MEDICATIONS: The patient is on Lasix 40 b.i.d., Coreg 12.5 b.i.d., lisinopril 10 mg daily, I mdur 30 mg daily, finasteride 5 mg daily, spironolactone 25 mg daily, KCl 10 mEq daily, Lipitor 20 mg daily, hydralazine 50 mg t.i.d., Flomax 0.4 mg daily, ProAir inhaler. ALLERGIES: No known drug allergies. FAMILY HISTORY: Nothing of interest. SOCIAL HISTORY: The patient lives alone, history of cocaine abuse, but he says he is not using crack ed cocaine now. REVIEW OF SYSTEMS: Cardiovascular: Has shortness of breath, no chest pain. Respiratory: No fever, has cough, productive with yellow sputum. Gastrointestinal: No nausea or vomiting. No abdominal p ain. Genitourinary: No dysuria or hematuria. Central nervous system: No headache, no dizziness. PHYSICAL EXAMINATION: GENERAL: The patient is alert, awake, oriented x3. VITAL SIGNS: Temperature 100.1, respirations 26, pulse 104, blood pressure is 140/90. HEENT: Head is normocephalic, atraumatic. Pupils are equal and reactive to light. Nasopharynx is p tristan and dry. Hard and soft palate, no lesions seen. SKIN: Skin turgor decreased. NECK: Supple. No JVD. LUNGS: Breath sounds diminished bilaterally. Crackles present in both bases. CARDIAC: S1, S2 regular. ABDOMEN: Soft, no distention, no tenderness. Normal bowel sounds present. RECTAL: Deferred. CENTRAL NERVOUS SYSTEM: No focal deficits. LABORATORY AND X-RAY FINDINGS: CBC shows WBC 7.9, hemoglobin 7.5, hematocrit 25, platelets 312. Met abolic panel: Sodium 135, potassium 4.4, chloride 98, CO2 23, BUN 47, creatinine 2.2, glucose 78. C K-MB 0.4, troponin I 0.13. BNP was 1871. Toxicology screen positive for opiates. Chest x-ray shows right lower lobe opacity. CT of the brain showed multifocal metastatic disease. EKG shows normal s inus rhythm, no acute ST-T wave changes seen. ASSESSMENT: 1. Acute on chronic systolic heart failure. 2. Severe cardiomyopathy with ejection fraction of 10%. 3. Fever, possible influenza A. 4. Right lung mass, metastatic, malignant. 5. Hypertension. 6. Peripheral edema. 7. Chronic kidney disease, stage 3. 8. Questionable pneumonia, right lower lobe. 9. Anemia. PLAN: 1. Vital signs q.4 hours. 2. Activity: As tolerated. 3. Allergies: No known drug allergies. 4. Hep-Lock. 5. Cefepime 1 gram IV piggyback q.8 hours. 6. Home medications. 7. Lasix 40 IVP q.12 hours. 8. CBC and BMP in the morning. 9. Influenza screen. 10. Cardiology consult. 11. Intake and output. 12. Pulmonary consult.
[2017-11-27] MEDS: Aspirin 81 mg Enteric Coated Tablet PO SCH (08:40)
[2017-11-27] MEDS: Spironolactone 25 MG TAB PO SCH (08:40)
[2017-11-27] MEDS: Carvedilol 25 MG TAB PO SCH ×2 (08:41→22:29)
[2017-11-27] MEDS: hydrALAZINE 25 MG TAB PO SCH ×3 (08:41→22:30)
[2017-11-27] MEDS: Lisinopril 10 MG TAB PO SCH (08:42)
[2017-11-27] MEDS: Oseltamivir 75 MG CAP PO SCH ×2 (08:42→22:29)
[2017-11-27] MEDS: Potassium Chloride 10 MEQ TAB PO SCH (08:42)
[2017-11-27] MEDS: Acetaminophen 325 MG TAB PO PRN ×2 (10:07→17:25)
--- NOTE | 2017-11-27 18:26 | PDOC.CTH ---
Cardiology Progress Note - Subjective His breathing is better today. - Objective Vital Signs Temp Pulse Resp BP BP Pulse Ox 11/27/17 16:00 97.6 F 66 16 132/66 95 11/27/17 14:27 61 91/54 L 11/27/17 12:48 97.9 F 61 17 107/58 L 95 11/27/17 08:42 110/55 L 11/27/17 08:41 64 11/27/17 08:38 98.2 F 64 18 110/55 L 93 L Weight 138 lb 9.6 oz 11/26/17 11/27/17 11/28/17 06:59 06:59 06:59 Intake Total 930 600 Output Total 1750 1100 375 Balance -820 -500 -375 - Physical Examination General/Neuro: alert & oriented x3, NAD Neck: no JVD present Lungs: unlabored respirations Heart: RRR Abdomen: NT/ND Extremities: + edema B (2+) - Telemetry Telemetry Rhythm: NSR - Labs Result Diagrams: 11/27/17 04:12 11/27/17 04:12 Troponin/CKMB CK-MB (CK-2) 0.4 ng/mL (0-6.6) 11/25/17 10:10 Troponin I 0.110 ng/mL (< 0.028) H 11/25/17 15:44 - Assessment/Plan 1. Acute on chronic diastolic heart failure 2. Non compliance 3. Substance abuse. 4. Possible RLL pneumonia 5. Possible metastatic disease. Suspect lung primary primary 6. Anemia PLAN: - He seems more euvolemic today. - Agree with switching back to home dose of PO lasix.
--- NOTE | 2017-11-27 19:48 | PRG ---
DATE OF SERVICE: 11/27/2017 Mr. Ac was readmitted. He was found to have multiple brain metastases. We have no tissue diagnosis but clearly, has stage IV lung cancer. He has no complaints at this time. His lower extremity edema has improved (which was his presenting complaint). White count is 4.5, hemoglobin 7.6, platelets 298,000. Sodium 132, potassium 4, chloride 95, bicarb 27, BUN 64, creatinine 2.5. IMPRESSION: 1. Multiorgan dysfunction. 2. Metastatic stage IV lung cancer with very large right hilar mass that was obstructing his right l ower lobe bronchus. He needs Oncology input to decide whether there are therapeutic options at all. Last visit, he was scheduled with an appointment in my office for set up PET imaging. He did not sh ow up for that. We tried to set him up for a PET. It is unclear to me whether or not that date has come or not but compliance clearly has been a huge issue. He did not have a positive drug screen this admission for cocaine like he has for the last 11 admissi ons. I will not schedule any procedures until Oncology tells me whether or not there is a plan. Unfortunately, his advanced disease is incurable.
[2017-11-27] MEDS: Atorvastatin Calcium 20 MG TAB PO SCH (22:28)
[2017-11-27] MEDS: Furosemide 40 MG TAB PO SCH (22:29)
[2017-11-27] MEDS: Finasteride 5 MG TAB PO SCH (22:32)
[2017-11-27] MEDS: Dexamethasone 4 mg/ml Vial SLOW IVP SCH (22:33)
[2017-11-27] MEDS: Tamsulosin HCl 0.4 MG CAP PO SCH (22:33)
[2017-11-28] MEDS: Dexamethasone 4 mg/ml Vial SLOW IVP SCH ×4 (02:30→21:17)
[2017-11-28 05:40] LABS: #Lymphocytes 0.5 thou/uL (1.20-3.40); #Monocytes 0.3 thou/uL (0.11-0.59); #Neutrophils 2.8 thou/uL (1.40-6.50); %Basophils 0.1 % (0.0-1.0); %Eosinophils 0.2 % (0.0-10.0); %Lymphocytes 14.2 % (21.0-51.0); %Monocytes 8.8 % (0.0-10.0); %Neutrophils 76.6 % (42.0-75.0); Hemoglobin 8.1 g/dL (14.0-18.0); Mean Corpuscular HGB CONC 29.6 g/dL (32.0-36.0); Mean Corpuscular Hemoglobin 20.7 pg (27.0-31.0); Mean Corpuscular Volume 69.9 fl (80.0-94.0); Mean Platelet Volume 9.2 fL (7.4-10.4); Platelet Count 317 thou/uL (130-400); RBC Distribution Width 17.6 % (11.5-14.5); White Blood Cell (WBC) Count 3.6 thou/uL (4.8-10.8)
[2017-11-28 05:41] LABS: Anion Gap 17 mmol/L (10-20); BUN (Urea Nitrogen) 66 mg/dL (8.4-25.7); Calc. Creatinine Clearance 28 mL/min (70-130); Calcium 8.1 mg/dL (7.8-10.44); Carbon Dioxide 24 mmol/L (23-31); Chloride 96 mmol/L (98-107); Estimated GFR-MDRD 33; Glucose 117 mg/dL (80-115); Potassium 4.6 mmol/L (3.5-5.1); Sodium 132 mmol/L (136-145)
[2017-11-28] MEDS: Spironolactone 25 MG TAB PO SCH (08:33)
[2017-11-28] MEDS: Carvedilol 25 MG TAB PO SCH ×2 (08:34→21:14)
[2017-11-28] MEDS: Aspirin 81 mg Enteric Coated Tablet PO SCH (08:34)
[2017-11-28] MEDS: Oseltamivir 75 MG CAP PO SCH ×2 (08:39→21:18)
[2017-11-28] MEDS: Furosemide 40 MG TAB PO SCH ×2 (08:39→21:18)
[2017-11-28] MEDS: Potassium Chloride 10 MEQ TAB PO SCH (08:39)
[2017-11-28] MEDS: hydrALAZINE 25 MG TAB PO SCH ×3 (08:39→21:18)
[2017-11-28] MEDS: Lisinopril 10 MG TAB PO SCH (08:39)
[2017-11-28] MEDS: Acetaminophen 325 MG TAB PO PRN ×3 (08:40→22:04)
--- NOTE | 2017-11-28 12:48 | PRG ---
DATE OF SERVICE: 11/28/2017 SUBJECTIVE: There are no new issues. Mr. Ac is awaiting Oncology input as to whether or not ther e are therapeutic alternatives. We will give him any increase in length of life given his stage IV l raul cancer. OBJECTIVE: VITAL SIGNS: He is afebrile, heart rate 58, blood pressure 124/57, oximetry is 94% on room air. IMPRESSION: 1. Metastatic stage IV cancer of the lung. 2. Severe cardiomyopathy. 3. History of cocaine use. 4. History of medical noncompliance. He was recently noncompliant with follow up with me even can mccain I emphasized the importance of followup, to set up PET imaging. We will await oncology's input if they want tissue we should be able to sedate him and obtain tissue from his right lower lobe bronchus .
--- NOTE | 2017-11-28 19:12 | CON ---
DATE OF CONSULTATION: 11/28/2017 REASON FOR CONSULTATION: Lung mass with brain metastasis. HISTORY OF PRESENT ILLNESS: Mr. Ac is a 62-year-old -[place] male who was admitted for bi lateral lower extremity edema. He was recently discharged from this hospital several days ago for CH F exacerbation and a right lung mass. He also had bilateral hydronephrosis. He initially was noted to have this right hilar mass this fall. He was being worked up as an outpatient, but failed to foll ow up. His last imaging now showed progression to the point where he is obstructing his right lower lobe bronchus. On this admission, he had a brain CT without contrast which showed no intracranial me tastatic disease, multifocal areas. He had vasogenic edema involving the left frontal lobe and the a nterior aspect of the left parietal lobe. There is some area of edema over the mid right centrum cristina iovale. There was an indeterminate area in the right cerebellar hemisphere. Unfortunately, the pilar ent is unable to have contrast secondary to kidney disease. He is unable to have an MRI due to his p acemaker placement. We were asked to see the patient regarding prognosis and possible treatment opti ons. The patient denies any shortness of breath, no chest pain. He is overall weak. He has no coug h or hemoptysis. He does have a history of crack cocaine use, but denies any recent usage. He lives in [place] with his elderly mother. PAST MEDICAL HISTORY: 1. Cardiomyopathy with ejection fraction of 10% 2. Chronic kidney disease. 3. Bilateral hydronephrosis secondary to bladder outlet obstruction. 4. Hypertension. 5. History of cocaine use. 6. Bipolar disease. 7. Coronary artery disease. PAST SURGICAL HISTORY: 1. Appendectomy. 2. Pacemaker placement. ALLERGIES: No known drug allergies. HOME MEDICATIONS: 1. Albuterol inhaler p.r.n. 2. Aspirin 81 mg daily. 3. Lipitor 20 mg daily. 4. Coreg 12.5 mg b.i.d. 5. Finasteride 5 mg daily. 6. Lasix 40 mg b.i.d. 7. Apresoline 50 mg daily. 8. Imdur ER 30 mg daily. 9. Lisinopril 10 mg daily. 10. K-Dur 10 mEq daily. 11. Aldactone 25 mg daily. 12. Flomax 0.4 mg daily. FAMILY HISTORY: Noncontributory. SOCIAL HISTORY: Lives in [place] close to his elderly mother. He is a [id number] smoker, but tello t several years ago. No alcohol or illicit drug use. REVIEW OF SYSTEMS: A 10 point review of systems is negative except for noted in HPI. PHYSICAL EXAMINATION: VITAL SIGNS: Temperature is 97.6, pulse is 55, respiratory rate 18, BP is 97/60, he is 96% on room a ir. GENERAL: Well-developed, well-nourished male in no acute distress. HEENT: Normocephalic, atraumatic. Pupils are equal and reactive to light. NECK: Supple. CARDIOVASCULAR: Regular rate and rhythm. Pacemaker in his left chest. LUNGS: Diminished throughout. ABDOMEN: Soft, nontender, bowel sounds are positive. EXTREMITIES: No clubbing, cyanosis or edema. SKIN: No rash. HEMATOLOGIC: No petechia or purpura. NEUROLOGIC: Nonfocal. PSYCHIATRIC: The patient is alert and oriented and appropriate. PERTINENT LABORATORY AND X-RAYS: Current WBCs are 3.6, hemoglobin 8.1, hematocrit 27.2, platelet cou nt is 317,000, 76% neutrophils, 14% lymphocytes. Sodium is 132, potassium 4.6, chloride 96, CO2 is 2 4, BUN is 66, creatinine 2.38, calcium is 8.1. BNP is 1871. His drug screen was positive for opiate s. Radiology, per HPI. ASSESSMENT PLAN: 1. Likely stage IV lung cancer with brain metastasis. 2. Severe cardiomyopathy with an ejection fraction of 10%. 3. Chronic kidney disease 4. 4. Bilateral hydronephrosis. 5. History of illicit drug use with drug screen positive for opiates. 6. History of noncompliance. The patient is a poor candidate for chemotherapy and radiation, unable to get a contrast CT of the br ain, nor an MRI of the brain to review the metastatic lesions for possible radiation. Patient would poorly tolerate any [place]-based chemotherapy. There may be an option of immunotherapy if he expre sses PD1 greater than 50% on tissue biopsy; however, given his extremely poor performance status, his tory of illicit drug use and medical compliance and overall very poor prognosis, we would recommend h ospice. This case has been discussed with Dr. Carballo. I have discussed his disease process and poo r prognosis with the patient and his family. They would like to discuss this further. I will follow up with him tomorrow. Thank you for the consult.
[2017-11-28] MEDS: Finasteride 5 MG TAB PO SCH (21:17)
[2017-11-28] MEDS: Atorvastatin Calcium 20 MG TAB PO SCH (21:17)
[2017-11-28] MEDS: Tamsulosin HCl 0.4 MG CAP PO SCH (21:18)
[2017-11-29] MEDS: Dexamethasone 4 mg/ml Vial SLOW IVP SCH ×4 (03:20→20:32)
[2017-11-29] MEDS: Lisinopril 10 MG TAB PO SCH (08:44)
[2017-11-29] MEDS: hydrALAZINE 25 MG TAB PO SCH ×3 (08:44→20:35)
[2017-11-29] MEDS: Furosemide 40 MG TAB PO SCH ×2 (08:45→20:34)
[2017-11-29] MEDS: Oseltamivir 75 MG CAP PO SCH ×2 (08:45→20:33)
[2017-11-29] MEDS: Potassium Chloride 10 MEQ TAB PO SCH (08:45)
[2017-11-29] MEDS: Spironolactone 25 MG TAB PO SCH (08:45)
[2017-11-29] MEDS: Aspirin 81 mg Enteric Coated Tablet PO SCH (08:45)
[2017-11-29] MEDS: Carvedilol 25 MG TAB PO SCH ×2 (09:21→20:34)
[2017-11-29] MEDS: Acetaminophen 325 MG TAB PO PRN (14:39)
[2017-11-29] MEDS: Finasteride 5 MG TAB PO SCH (20:33)
[2017-11-29] MEDS: Atorvastatin Calcium 20 MG TAB PO SCH (20:33)
[2017-11-29] MEDS: Tamsulosin HCl 0.4 MG CAP PO SCH (20:33)
[2017-11-30] MEDS: Dexamethasone 4 mg/ml Vial SLOW IVP SCH ×3 (03:03→14:22)
[2017-11-30] MEDS: Aspirin 81 mg Enteric Coated Tablet PO SCH (09:35)
[2017-11-30] MEDS: Lisinopril 10 MG TAB PO SCH (09:35)
[2017-11-30] MEDS: hydrALAZINE 25 MG TAB PO SCH ×2 (09:36→14:20)
[2017-11-30] MEDS: Spironolactone 25 MG TAB PO SCH (09:37)
[2017-11-30] MEDS: Potassium Chloride 10 MEQ TAB PO SCH (09:37)
[2017-11-30] MEDS: Furosemide 40 MG TAB PO SCH (09:38)
[2017-11-30] MEDS: Carvedilol 25 MG TAB PO SCH (09:38)
[2017-11-30] MEDS: Oseltamivir 75 MG CAP PO SCH (09:39)
[2017-11-30 14:21] VITALS: BP 100/56
[2017-11-30 19:28] VITALS: TEMP 98
== END 2017-11-30 15:26 | disposition hospice, home (50) | DRG 291 ==
LOC: ERS 09:55 → 2NO 11:33 → T4-B 11-28 13:13
PROVIDERS: ADMIT Internal Medicine; ATTEND Internal Medicine
DX: I13.0 Hypertensive heart and chronic kidney disease with heart failure and stage 1 through stage 4 chronic kidney disease, or unspecified chronic kidney disease (principal); I50.43 Acute on chronic combined systolic (congestive) and diastolic (congestive) heart failure; G93.6 Cerebral edema; N18.4 Chronic kidney disease, stage 4 (severe); C79.31 Secondary malignant neoplasm of brain; N13.30 Unspecified hydronephrosis; I42.9 Cardiomyopathy, unspecified; C34.91 Malignant neoplasm of unspecified part of right bronchus or lung; R50.9 Fever, unspecified; D64.9 Anemia, unspecified; Z91.14 Patient's other noncompliance with medication regimen; F31.9 Bipolar disorder, unspecified; Z95.0 Presence of cardiac pacemaker; F11.10 Opioid abuse, uncomplicated
CPT/HCPCS: 36415; 70450; 71046; 80048; 80306; 82553; 83880; 84484; 85025; 87040; 87149; 90471; 90682; 93005; 93798; 94760; 96374; A4216; G0008; J0692; J1100; J1940; Q2036

== ENCOUNTER 2017-12-23 09:58 | Emergency (ER) | payer OTHER ==
[2017-12-23 10:20] LABS: Hemoglobin 8.8 g/dL (14.0-18.0); Mean Corpuscular HGB CONC 30.4 g/dL (32.0-36.0); Mean Corpuscular Hemoglobin 21.3 pg (27.0-31.0); Mean Corpuscular Volume 69.9 fl (80.0-94.0); Mean Platelet Volume 11.5 fL (7.4-10.4); Platelet Count 218 thou/uL (130-400); RBC Distribution Width 18.8 % (11.5-14.5); Red Blood Cell (RBC) Count 4.14 mill/uL (4.70-6.10); White Blood Cell (WBC) Count 11.3 thou/uL (4.8-10.8)
[2017-12-23 10:26] LABS: INR-International Normal Ratio 1.1; Prothrombin Time 14.3 SEC (12.0-14.7)
[2017-12-23] MEDS ORDERED: Dexamethasone 4 mg/ml Vial ONE (10:27)
[2017-12-23] MEDS ORDERED: Lorazepam 2 MG/ML VIAL ONE (10:27)
[2017-12-23 10:32] LABS: ALT (SGPT) Less than 7 U/L (8-55); AST (SGOT) 12 U/L (5-34); Albumin 3.4 g/dL (3.4-4.8); Alkaline Phosphatase 70 U/L (40-150); Anion Gap 20 mmol/L (10-20); BUN (Urea Nitrogen) 60 mg/dL (8.4-25.7); Bilirubin, Total 0.3 mg/dL (0.2-1.2); Calc. Creatinine Clearance 0 mL/min (70-130); Calcium 8.6 mg/dL (7.8-10.44); Carbon Dioxide 20 mmol/L (23-31); Chloride 104 mmol/L (98-107); Estimated GFR-MDRD 42; Globulin 4.2 g/dL (2.4-3.5); Glucose 124 mg/dL (80-115); Potassium 4.7 mmol/L (3.5-5.1); Protein, Total 7.6 g/dL (5.8-8.1); Sodium 139 mmol/L (136-145)
[2017-12-23 10:34] LABS: CKMB 1.4 ng/mL (0-6.6); Troponin I 0.075 ng/mL (< 0.028)
--- NOTE | 2017-12-23 10:35 | CT ---
CT BRAIN: Date: 12/23/17 HISTORY: Slurred speech and shaking. FINDINGS: There are areas of vasogenic edema seen within each cerebral hemisphere. Areas of vasogenic edema wer e also seen on the study of 11/25/17. However, the area of vasogenic edema involving the left cerebra l hemisphere has increased from the prior exam with increased density focus within the left posterola teral parietal lobe measuring 1.5 cm, likely related to a metastatic lesion in this region. Area of v asogenic edema in the right parietal lobe cerebral hemisphere is again seen and overall similar to th e prior exam. There is an additional area of vasogenic edema now present in the right temporal lobe w ith suggestion of an area of vasogenic edema within the anterior aspect of the right frontal lobe, bu t this could be artifactual as there is motion artifact on this exam which slightly limits evaluation . There is no midline shift present. There is sulcal effacement due to the vasogenic edema. No intrapar enchymal or extra-axial hemorrhage is appreciated. No other interval change. IMPRESSION: 1. Noncontrast CT evidence of intracranial multifocal metastatic disease. Area of vasogenic edema in the left cerebral hemisphere has increased from the prior exam with a new area of vasogenic edema wi thin the posterior right temporal lobe. Above findings were discussed with Dr. Nguyễn in the emergency department on 12/23/17 at 1014 hours. CODE CR. POS: [place]
[2017-12-23 10:40] LABS: #Eosinphils 0.1 thou/uL (0.0-0.7); #Lymphocytes 1.4 thou/uL (1.20-3.40); #Monocytes 0.8 thou/uL (0.11-0.59); #Neutrophils 9.1 thou/uL (1.40-6.50); %Eosinophils 0.5 % (0.0-10.0); %Lymphocytes 12.2 % (21.0-51.0); %Monocytes 6.8 % (0.0-10.0); %Neutrophils 80.5 % (42.0-75.0); Anisocytosis MODERATE=16-30 cells (100X) (0-5/hpf); Hypochromia SLIGHT = 6-15 cells (100X) (0-5/hpf); MDiff Complete? YES; Microcytosis MODERATE=15-30 cells (100X) (0-5/hpf); Ovalocytes SLIGHT = 2-5 cells (100X) (0-1/hpf); PLT Morphology Comment Appears Adequate; Polychromasia SLIGHT = 2-3 cells (100X) (0-2/hpf); Schistocytes SLIGHT = 2-5 cells (100X) (0-1/hpf); Target Cells SLIGHT = 2-5 cells (100X) (0-1/hpf)
== END 2017-12-23 11:42 | disposition home or self-care (01) ==
LOC: ERS 09:58
DX: R41.82 Altered mental status, unspecified (principal); C79.31 Secondary malignant neoplasm of brain; C78.00 Secondary malignant neoplasm of unspecified lung; C61 Malignant neoplasm of prostate; E11.9 Type 2 diabetes mellitus without complications; N28.9 Disorder of kidney and ureter, unspecified; I25.2 Old myocardial infarction; I11.0 Hypertensive heart disease with heart failure; I50.9 Heart failure, unspecified; Z87.891 Personal history of nicotine dependence; F31.9 Bipolar disorder, unspecified; F20.0 Paranoid schizophrenia
CPT/HCPCS: 36416; 70450; 80053; 82553; 83605; 84484; 85025; 85610; 85730; 96361; 96374; 96375; J1100; J2060; J2270